=== PATIENT | female | born 1935 | race Caucasian/White ===

== ENCOUNTER 2020-09-11 17:42 | Outpatient (CLI) | payer OTHER, MEDICARE, SELFPAY | END 2020-09-11 17:43 | disposition home or self-care (01) | LOC: ANHCOVIDVC 17:43 | PROVIDERS: PCP Internal Medicine | DX: Z23 Encounter for immunization (principal) | CPT/HCPCS: 0001A; 91300 ==

== ENCOUNTER 2020-10-02 17:38 | Outpatient (CLI) | payer OTHER, MEDICARE, SELFPAY | END 2020-10-02 17:39 | disposition home or self-care (01) | LOC: ANHCOVIDVC 17:38 | PROVIDERS: PCP Internal Medicine | DX: Z23 Encounter for immunization (principal) | CPT/HCPCS: 0002A; 91300 ==

== ENCOUNTER 2021-07-01 09:15 | Inpatient (IN) | payer OTHER, SELFPAY ==
[2021-07-01] VITALS (46 sets, daily range): BP systolic 103–155; BP diastolic 50–112; PULSE 71–100; RESP 12–40; TEMP 36.7–37.1; O2SAT 94–97; BMI 29.7
--- NOTE | 2021-07-01 | ECHO_ITS ---
Patient Info Name: Trupti Rincon Age: 85 years : 1935 Gender: Female Ht: 62 in Wt: 158 lbs BSA: 1.79 m2 HR: 81 bpm BP: 130 / 51 mmHg Technical Quality: Fair Exam Date: 07/01/2021 2:53 PM Exam Location: [facility] Pulmonary Patient Status: Outpatient Admit Date: 07/01/2021 Staff Ordering Physician: Lidia Felder MD Hemodialysis Technician: Azeb Coppola RDCS Attending Provider: Bethany Baez MD Referring Physician: Emerita ISLAS; Exam Type: CA echo doppler color flow Study Info Indications - NEW CHF Complete two-dimensional, color flow and Doppler transthoracic echocardiogram is performed. Summary 1. Complete two-dimensional, color flow and Doppler transthoracic echocardiogram is performed. 2. Left ventricular chamber dimension is normal. 3. Left ventricular systolic function is normal, estimated at 60-65%. 4. There is mildly increased left ventricular wall thickness. 5. The left ventricular diastolic function is grade I diastolic dysfunction. 6. E/e' 15 is elevated. 7. There is mild tricuspid valve regurgitation. 8. No pulmonary hypertension, estimated pulmonary arterial systolic pressure is 34 mmHg. 9. There is trivial pericardial effusion. Left Ventricle E/e' 15 is elevated. Left ventricular chamber dimension is normal. Left ventricular systolic function is normal, estimated at 60-65%. There is mildly increased left ventricular wall thickness. The left ventricular diastolic function is grade I diastolic dysfunction. Right Ventricle Right ventricular systolic function is normal and with normal TAPSE 2.0 cm. Right ventricular chamber dimension is normal. Left Atria Left atrial chamber dimension is normal. Right Atria Right atrial chamber dimension is normal. Aortic Valve The aortic valve is trileaflet. There is no aortic valve stenosis. There is no aortic valve regurgitation. Pulmonic Valve There is no pulmonic regurgitation. Mitral Valve There is no mitral valve stenosis. There is no mitral valve regurgitation. Tricuspid Valve There is mild tricuspid valve regurgitation. No pulmonary hypertension, estimated pulmonary arterial systolic pressure is 34 mmHg. Pericardium/Pleural There is trivial pericardial effusion. Inferior Vena Cava Normal inferior vena cava with >50% collapse upon inspiration consistent with normal right atrial pressure, 5 mmHg. Aorta The aortic root size at the sinus of Valsalva is normal. Left Ventricular Outflow Tract Name Value Normal LVOT 2D LVOT Diameter 2.0 cm LVOT Doppler LVOT Peak Gradient 6 mmHg LVOT Mean Gradient 4 mmHg LVOT VTI 26 cm LVOT VTI/AV VTI Ratio 0.9 LVOT Stroke Volume 81 ml LVOT CO 6.4 l/min LVOT CI 3.6 l/min/m2 Pulmonic Valve Name Value Normal
--- NOTE | ~2021-07-01 | XR_ITS ---
XR chest 1V portable DATE: 07/01/2021 10:06 INDICATION: Shortness of breath. Weakness. TECHNIQUE: Portable upright AP chest on 07/01/2021 at 0959 hours COMPARISON: 08/27/2018 AP and lateral chest FINDINGS: There is cardiomegaly, pulmonary vascular congestion and redistribution, prominence of the minor fissure as well as Td B-lines, consistent with congestive heart failure and mild pulmonary interstitial and subpleural edema. There is minimal if any pleural effusion. The lungs are hyperinflated. No pulmonary consolidation or pneumothorax. Aortic arch calcification. Diffuse osteopenia. IMPRESSION: Congestive heart failure with pulmonary interstitial and subpleural edema Reviewed, dictated and finalized at location B. [facility]AG[facility]
--- NOTE | 2021-07-01 09:47 | ECG_ITS ---
Measurements Intervals [place] Rate: 103 P: 73 NM: 160 QRS: 7 QRSD: 98 T: 44 QT: 316 QTc: 414 Interpretive Statements SINUS TACHYCARDIA VENTRICULAR PREMATURE COMPLEX CANNOT RULE OUT SEPTAL INFARCT, AGE INDETERMINATE BORDERLINE ST ABNORMALITY- ANTEROLATERAL LEADS BASELINE WANDER- I, II, AVR, AVL, AVF ABNORMAL ECG Electronically Signed On 07-01-2021 10:21:29 TOWER TECHNICIAN by Gentry De La Cruz D.O.
--- NOTE | 2021-07-01 09:52 | ED.SOB ---
HPI - SOB/Dyspnea General Chief Complaint: Shortness of Breath/Dyspnea Stated Complaint: SOB FROM [facility] Time Seen by Provider: 07/01/21 09:42 Source: patient and EMS Mode of arrival: EMS History of Present Illness HPI Narrative: This is an 85 year old female who presents for evaluation of shortness of breath. Patient's family reports patient was doing well yesterday. This morning her daughter found patient having difficulty breathing. She reports mild cough and shortness of breath, but she denies chest pain, fever or chills. She denies history of CHF or COPD. She denies any worsening leg swellling. She has received her first 2 covid vaccinations. Related Data Home Medications Medication Instructions Recorded Confirmed aspirin 81 mg tablet,delayed 81 mg PO DAILY 06/29/19 07/01/21 release Allergies Allergy/AdvReac Type Severity Reaction Status Date / Time ioversol Allergy Unknown Unknown Verified 05/09/21 10:36 Sulfa (Sulfonamide Allergy Hives Verified 07/01/21 14:05 Antibiotics) Contrast Media Allergy Intermediate HIVES Uncoded 05/09/21 10:36 Review of Systems Review of Systems: All systems reviewed & are unremarkable except as noted in HPI and below Constitutional: Constitutional: Denies chills and Denies fever(s) ENT: Reports nasal congestion and Denies sore throat Cardiovascular: Cardiovascular: Denies chest pain Respiratory: Respiratory: Reports cough, Reports dyspnea and Denies wheezing Gastrointestinal: Gastrointestinal: Reports abdominal pain, Denies constipation, Denies diarrhea, Reports nausea and Denies vomiting PMFSH Past Medical History Medical History (Updated 07/01/21 @ 17:55 by Lidia Felder MD) Arthritis Degenerative joint disease of right knee Essential (primary) hypertension Hematuria Hypertension Impacted cerumen of both ears Impairment of balance Knee joint effusion Onychomycosis of great toe Pneumonia Postmenopausal Rheumatoid arthritis Right knee DJD Shortness of breath Unsteady gait UTI (urinary tract infection) Vision changes Weight gain Surgical History Surgical History (Updated 07/01/21 @ 15:33 by Jessica Robbins NP) No pertinent past surgical history Family History Family History Father Family history of heart disease in male family member before age 55 Patient's father is Family history of cardiovascular disease Sibling Family history of heart disease in male family member before age 55 Patient's sister is Patient's brother is Family history of cardiovascular disease Mother Patient's mother is Acute myocardial infarction Other Cerebrovascular accident Family history of arthritis Heart disease Hypertension Malignant neoplasm Social History Social History (Updated 07/01/21 @ 15:34 by Jessica Robbins NP) Social History: The patient has 5 children. She is a homemaker. Her daughter is the power attorney general for healthcare. She is and lives home alone. She is a lifelong nonsmoker. She does not use any alcohol marijuana or illicit drugs. Code status full code Smoking status: Never smoker Second hand tobacco smoke exposure: No Alcohol intake: never Substance use: never Substance use type: does not use Spiritual care concerns: No Exam Const: General: alert and ill appearing acutely Orientation/consciousness: patient oriented x3 Other: tachypneic HENMT: Head: normocephalic and atraumatic Mouth: Yes Normal oral and palatal mucosa present, Yes lip normal, Yes oropharynx normal and Yes moist mucous membranes Eyes: EOM: EOMs intact bilaterally Resp: Effort & Inspection: labored and tachypneic Auscultation: no wheezes and diminished lung sounds bilateral Other: airway patent Cardio: Rate: regular rate Rhythm: regular rhythm Heart sounds: no murmurs GI:
[2021-07-01] MEDS: IPRATROPIUM BR 0.02% INH SOLN 0.5 MG/2.5 ML VIAL 1 MG INHALATION (09:58)
[2021-07-01] MEDS: ALBUTEROL SULFATE NEB 2.5 MG/0.5 ML INH 10 MG INHALATION (09:58)
[2021-07-01 10:20] LABS: Alveolar/Arterial O2 Gradient 66.3 mmHg; Base Excess ABG -0.4 mEq/l (+/-2.0); Carboxyhemoglobin 0.9 % THb (0-2.0); Device NASAL CANNULA; Fractional Inspired Oxygen 28 %; HCO3 ABG 24.4 mEq/l (22.0-26.0); Methemoglobin ABG 0.3 %THb (0-1.5); Modified Allen's Test Pass; Oxygen Content ABG 17.8 %vol (16.0-22.0); Oxygen Saturation ABG 96.5 % (95.0-100.0); Oxyhemoglobin 95.1 % THb (90.0-100.0); PCO2 ABG 40.5 mmHg (35.0-45.0); PO2 ABG 85.6 mmHg (80.0-100.0); PO2 FiO2 Ratio Arterial Blood 3.06 %; Reduced Hemoglobin 3.7 %THb (0-5.0); Site Drawn RIGHT RADIAL; Total Hemoglobin 13.3 g/dL (12.0-18.0); pH ABG 7.397 (7.350-7.450)
[2021-07-01 10:24] LABS: Hemoglobin 12.8 g/dL (12.0-15.0); Immature Platelet Fraction Pct 2.7 % (0.9-11.2); Mean Corpuscular HGB Conc 33.7 g/dl (32-36); Mean Corpuscular Hemoglobin 31.5 pg (26-34); Mean Corpuscular Volume 93.6 fl (80-100); Mean Platelet Volume 9.7 fl (7.4-10.4); Red Blood Count 4.06 M/mm3 (4.2-5.4); Red Cell Distribution Width 12.3 % (11.5-14.5); White Blood Count 21.6 K/mm3 (4.5-10.0)
[2021-07-01 10:32] LABS: Alanine Aminotransferase 15 U/L (4-35); Albumin Level 4.2 g/dL (3.5-5.1); Alkaline Phosphatase 68 U/L (38-126); Anion Gap 9 mmol/L (8-16); Aspartate Amino Transferase 27 U/L (14-36); Bilirubin,Total 0.8 mg/dL (0.2-1.3); Blood Urea Nitrogen 16 mg/dL (7-17); Calcium 8.9 mg/dL (8.4-10.2); Carbon Dioxide 24 mmol/L (22-30); Chloride 94 mmol/L (98-107); Estimated CRCL calculation 42 ml/min; Estimated Glomerular Filt Rate > 60; Glucose 171 mg/dL (65-110); Potassium 3.6 mmol/L (3.4-5.0); Sodium 127 mmol/L (137-145)
[2021-07-01 10:46] LABS: INR 1.1; NT Pro B Type Natriuretic Pept 1860 pg/mL (5-100); Prothrombin Time 14.5 Seconds (11.1-14.7); Troponin I 0.043 ng/mL (0.000-0.034)
[2021-07-01 10:47] LABS: Partial Thromboplastin Time 27.2 SECONDS (22.3-36.8)
[2021-07-01] MEDS: IPRATROPIUM BR 0.02% INH SOLN 0.5 MG/2.5 ML VIAL (11:04)
[2021-07-01] MEDS: ALBUTEROL SULFATE NEB 2.5 MG/0.5 ML INH (11:04)
[2021-07-01 11:26] LABS: Band Neutrophils Percent 9 % (0-6); Neutrophils Absolute Manual 20.08 K/mm3 (1.7-7.2); Neutrophils Percent Manual 84 % (46-73)
[2021-07-01 11:27] LABS: Lymphocytes Absolute Manual 0.64 K/mm3 (1.1-4.5); Lymphocytes Percent Manual 3 % (18-44); Monocytes Absolute Manual 0.86 K/mm3 (0.1-0.90); Monocytes Percent Manual 4 % (3-9); Total Cells Counted 100
[2021-07-01 11:28] LABS: Platelet Clumps Present
[2021-07-01] MEDS: methylPREDNISolone SOD SUCC 125 MG VIAL IV PUSH (12:02)
[2021-07-01] MEDS: FUROSEMIDE INJ 40 MG/4 ML VIAL IV PUSH (12:02)
[2021-07-01 12:53] LABS: EDCOVIDSCREEN Negative (Negative)
--- NOTE | 2021-07-01 13:49 | PM.IMHP ---
H&P: HPI History of Present Illness Date/Time: 07/01/21 13:49 this is a 85-year-old female patient who came to the emergency room due to shortness of breath. The patient has had no prior diagnosis of congestive heart failure. The patient was gasping for air according to her daughter. The patient was recently treated for urinary tract infection and had been on 2 different antibiotics. Initially she had been on Levaquin and she recently completed Macrobid. The patient also has been having dry heaves today. The daughter feels that maybe the antibiotics had been making the patient sick to her stomach. The patient is not typically on any oxygen at home and she is on 2.5 L here. Her respiratory rate has been in the 30s. Blood pressure is 124/56. Pulse rate is in the 80s. O2 saturation is in the 90s with the 2.5 L. patient does not appear to be in any distress. Her sodium level was 127. Glucose is 171. Her troponin is 0.043. BNP is 1860. Her COVID rapid was negative. Chest x-ray was read as congestive heart failure and pulmonary interstitial and some pleural edema. The patient has a white count of 21.6. The patient was given nebulizer treatments, Lasix, Solu-Medrol, and she was treated for community-acquired pneumonia. She was given a azithromycin Rocephin. The patient is being admitted for observation status on 07/01/21. Chief Complaint: Shortness of breath Review of Systems Review of Systems: All systems reviewed & are unremarkable except as noted in HPI and below Constitutional: Constitutional: Reports as per HPI and Reports no additional constitutional complaints Eyes: Eyes: Reports as per HPI and Reports no additional eye complaints ENT: Reports system reviewed and no additional complaints, except as documented and Reports Normal hearing present Cardiovascular: Cardiovascular: Reports no additional cardiovascular complaints Respiratory: Respiratory: Reports no additional respiratory complaints and Reports no additional respiratory complaints Gastrointestinal: Gastrointestinal: Reports as per HPI and Reports no additional gastrointestinal complaints Musculoskeletal: Musculoskeletal: Reports no additional musculoskeletal complaints Integumentary/Breasts: Skin/Breast: Reports system reviewed and no additional complaints, except as docu and Reports as per HPI Neurologic: Reports system reviewed and no additional complaints, except as documented, Reports as per HPI and Reports Normal hearing present Psychiatric: Psychiatric: Reports no additional psychiatric complaints and Reports as per HPI Endocrine: Endocrine: Reports no additional endocrine complaints Hematologic/Lymphatic: Hematologic/Lymphatic: Reports no additional hematologic/lymphatic complaints Allergic/Immunologic: Allergic/Immunologic: Reports no additional allergic/immunologic complaints [facility] [place] Past Medical History Medical History (Updated 07/01/21 @ 15:52 by Jessica Robbins NP) Arthritis Degenerative joint disease of right knee Essential (primary) hypertension Hematuria Hypertension Impacted cerumen of both ears Impairment of balance Knee joint effusion Onychomycosis of great toe Pneumonia Postmenopausal Rheumatoid arthritis Right knee DJD Shortness of breath Unsteady gait UTI (urinary tract infection) Vision changes Weight gain Surgical History Surgical History (Updated 07/01/21 @ 15:33 by Jessica Robbins NP) No pertinent past surgical history Family History Family History Father Family history of heart disease in male family member before age 55 Patient's father is Family history of cardiovascular disease Sibling Family history of heart disease in male family member before age 55 Patient's sister is Patient's brother is Family history of cardiovascular disease Mother Patient's mother is Acute myocardial i
[2021-07-01 14:07] LABS: Troponin I 0.043 ng/mL (0.000-0.034)
--- NOTE | 2021-07-01 17:08 | PC.NURSE ---
Pt finished dinner, ate approx 75%. Pt denies any complaints right now, resting in NAD. Pt assisted onto bedpan and given call light, she states she will need a few minutes. Continuing to await admission bed assignment.
[2021-07-01 18:06] LABS: Add Urine Microscopic? YES; Appearance Urine Clear (Clear); Bacteria Urine Trace /hpf; Bilirubin Urine Negative (Negative); Blood Urine 2+ (Negative); Color Urine Yellow (Yellow); Glucose Urine UA Negative (Negative); Ketones Urine Negative (Negative); Leukocyte Esterase Ur Trace LEU/UL (Negative); Nitrate Urine Negative (Negative); Protein Urine Negative (Negative); Specific Grav Ur 1.006 (1.001-1.035); Squamous Epithelial Cell Urine Few /hpf (Few); Urobilinogen Urine Negative mg/dL (<2.0)
--- NOTE | 2021-07-01 18:17 | PC.NURSE ---
Report received from Jessica RAZA in the ED.
--- NOTE | 2021-07-01 18:36 | PC.NURSE ---
This patient, Trupti Rincon, was admitted to [address] [place] [address] Room 241-01. Patient/family oriented to hospital policies and general routines including ID bracelet, bed and alarms, visiting hours, pain management, procedures, bathroom and other care routines, personal items, smoking policy, room service/diet, and visiting hours. Information on how to activate the Rapid Response Team has been discussed. Patient/Family are encouraged to report perceived risks to care and to ask questions if they do not understand what they are told or what they should do. This patient, Trupti Rincon, was admitted to [facility] Room [facility]-01. Patient/family oriented to hospital policies and general routines including ID bracelet, bed and alarms, visiting hours, pain management, procedures, bathroom and other care routines, personal items, smoking policy, room service/diet, and visiting hours. Information on how to activate the Rapid Response Team has been discussed. Patient/Family are encouraged to report perceived risks to care and to ask questions if they do not understand what they are told or what they should do.
[2021-07-01] MEDS: carvediloL 6.25 MG TABLET BY MOUTH (21:36)
[2021-07-01] MEDS: methylPREDNISolone SOD SUCC 125 MG VIAL 60 MG IV PUSH (21:36)
[2021-07-01] MEDS: LOSARTAN POTASSIUM 50 MG TABLET BY MOUTH (21:36)
[2021-07-02] VITALS (19 sets, daily range): BP systolic 128–150; BP diastolic 41–87; PULSE 60–90; RESP 12–20; TEMP 36.2–36.8; O2SAT 93–98
[2021-07-02] MEDS: IPRATROPIUM BR 0.02% INH SOLN 0.5 MG/2.5 ML VIAL INHALATION ×5 (01:34→22:06)
[2021-07-02] MEDS: ALBUTEROL SULFATE NEB 2.5 MG/0.5 ML INH 5 MG INHALATION ×5 (01:35→22:06)
--- NOTE | 2021-07-02 01:39 | PCRCNOTE ---
Pt did not receive 07/01 20:00 nebulizer tx. RT unavailable during administration window.
[2021-07-02 05:46] LABS: Hematocrit 34.9 % (37.0-47.0); Hemoglobin 12.1 g/dL (12.0-15.0); Mean Corpuscular HGB Conc 34.7 g/dl (32-36); Mean Corpuscular Hemoglobin 31.7 pg (26-34); Mean Corpuscular Volume 91.4 fl (80-100); Mean Platelet Volume 9.6 fl (7.4-10.4); Platelet Count Result 247 k/mm3 (150-375); Red Blood Count 3.82 M/mm3 (4.2-5.4); Red Cell Distribution Width 12.3 % (11.5-14.5); White Blood Count 20.2 K/mm3 (4.5-10.0)
[2021-07-02 05:49] LABS: Alanine Aminotransferase 16 U/L (4-35); Albumin Level 3.8 g/dL (3.5-5.1); Alkaline Phosphatase 62 U/L (38-126); Anion Gap 7 mmol/L (8-16); Aspartate Amino Transferase 31 U/L (14-36); Bilirubin,Total 0.4 mg/dL (0.2-1.3); Blood Urea Nitrogen 26 mg/dL (7-17); Calcium 8.8 mg/dL (8.4-10.2); Carbon Dioxide 28 mmol/L (22-30); Chloride 91 mmol/L (98-107); Cholesterol 174 mg/dL (0-200); Estimated CRCL calculation 38 ml/min; Estimated Glomerular Filt Rate 60; Glucose 151 mg/dL (65-110); HDL Direct 55 mg/dL; Lactate Dehydrogenase 462 U/L (313-618); Lactic Acid Reflex 1.2 mmol/L (0.7-2.1); Magnesium 1.9 mg/dL (1.6-2.3); Potassium 3.3 mmol/L (3.4-5.0); Sodium 126 mmol/L (137-145); Triglycerides 54 mg/dL (<150)
[2021-07-02 06:00] LABS: LDL Cholesterol Direct 79 mg/dL
[2021-07-02] MEDS: methylPREDNISolone SOD SUCC 125 MG VIAL 60 MG IV PUSH (06:33)
[2021-07-02 06:53] LABS: Thyroid Stimulating Hormone Reflex 0.891 uIU/mL (0.465-4.68)
[2021-07-02 08:02] LABS: Band Neutrophils Percent 6 % (0-6); Lymphocytes Percent Manual 1 % (18-44); Monocytes Percent Manual 2 % (3-9); Neutrophils Absolute Manual 19.59 K/mm3 (1.7-7.2); Neutrophils Percent Manual 91 % (46-73); Platelet Estimate Adequate (Adequate); Total Cells Counted 100
[2021-07-02] MEDS: CHOLECALCIFEROL 1,000 UNITS TABLET 2000 UNITS PO (09:02)
[2021-07-02] MEDS: ASPIRIN 81 MG ENTERIC TABLET PO (09:02)
[2021-07-02] MEDS: carvediloL 6.25 MG TABLET BY MOUTH (09:02)
[2021-07-02] MEDS: ENOXAPARIN 40 MG/0.4 ML SYRINGE SUB-Q (09:03)
[2021-07-02] MEDS: LOSARTAN POTASSIUM 50 MG TABLET BY MOUTH ×2 (09:03→21:58)
--- NOTE | 2021-07-02 10:04 | PM.CNCAR ---
Assessment and Plan Additional Plan this is an 85-year-old woman with a history of longstanding essential hypertension presenting to the hospital with chief complaint of episode of chills yesterday morning and then some shortness of breath after that. She does not read the report a productive cough or a fever. Chest x-ray is interpreted as showing some basilar pulmonary congestion which is also audible on physical exam. She has no history of overt congestive heart failure in the past. Her echocardiogram shows normal left ventricular size and systolic contractility. There is no significant valvular pathology. She does have diastolic noncompliance. At this point I would recommend continuing her home dose of losartan. I am going to advance her carvedilol dosage to 12.5 mg q.12 hours since she is somewhat hypertensive. I will start her on some oral furosemide in place of the hydrochlorothiazide that she had been taking as an outpatient. Will follow her with you during this hospitalization and thank you for asking us to see her in consultation Freddie Zarate MD [facility] History of Present Illness History of Present Illness Consult date/time: 07/02/21 10:04 Consult reason: congestive heart failure Reason For Visit: Chf w pulmonary edema/acute respiratory distress Narrative: This is an 85-year-old woman who I am seeing at the request of the hospitalist because of suspected congestive heart failure and elevated troponin levels. This is a lady who says she is not known to have any cardiac problems in the past although she does have longstanding hypertension. She states that she came to the hospital yesterday because of feeling unwell at home. Her symptoms began with the sense of feeling chilled and very shaky earlier in the day it despite the fact that she had turned up the furnace and covered up with a blanket. Later in the day she started to feel more short of breath and so her family brought her into the emergency department for evaluation. In the emergency department she was seen and her chest x-ray was interpreted as showing evidence of pulmonary congestion raising the concern regarding CHF. She had troponin levels done which were slightly out of normal range. Her ECG does not show any evidence of acute coronary syndrome. She was put in the hospital given some intravenous furosemide last evening. She was also placed on antibiotics and steroids. She appears to be fairly comfortable when I came in the room to see her this morning seated in her bedside chair having her breakfast and watching television. She does not report any symptoms of chest pain orthopnea or PND she has had no accumulating lower extremity edema. An echocardiogram was done yesterday which was interpreted as showing mild LVH with normal systolic function, grade 1 diastolic noncompliance and no significant valvular pathology. Her chest x-ray demonstrates congestion in right lower lobe as well as significant tortuosity of her aorta. Review of Systems Constitutional: Constitutional: Reports no additional constitutional complaints Eyes: Eyes: Reports no additional eye complaints ENT: Reports system reviewed and no additional complaints, except as documented Cardiovascular: Cardiovascular: Reports no additional cardiovascular complaints Respiratory: Respiratory: Reports dyspnea Gastrointestinal: Gastrointestinal: Reports no additional gastrointestinal complaints Musculoskeletal: Musculoskeletal: Reports arthralgias Integumentary/Breasts: Skin/Breast: Reports system reviewed and no additional complaints, except as docu Endocrine: Endocrine: Reports no additional endocrine complaints Hematologic/Lymphatic: Hematologic/Lymphatic: Reports no additional hematologic/lymphatic complaints Allergic/Immunologic: Allergic/Immunologic: Reports no additional allergic/immunologic complaints [facility] Past Medical History Medical History (Updated 07/01/21 @ 17:55 by Lidia Felder,
--- NOTE | 2021-07-02 10:24 | PM.IMPN ---
Progress Note: A&P Assessment and Plan (1) Acute respiratory failure with hypoxia: Code(s): J96.01 - Acute respiratory failure with hypoxia Status: Acute Assessment and Plan: Patient is an 85-year-old woman with a history of hypertension, who presented to emergency room with increased shortness of breath over the last few days and went to an urgent care yesterday where they found her to be hypoxic and she was sent to our emergency room for further evaluation. initial vitals showed elevated blood pressure 135/89, heart rate 100 beats per minute, afebrile, normal oxygenation at 96% on room air. Initial labs showed leukocytosis at 21,600, normal H&H, elevated neutrophil count at 84% and neutrophils elevated at 9%, normal coag panel, normal ABG on 2 L via nasal cannula. Hyponatremia at 127, normal renal function, normal LFTs, troponin elevated 0.043 x2. BNP elevated at 1860. Urinalysis showed 2+ blood, trace leukocyte esterase, WBCs 7-9, not appear to be a UTI. Rapid COVID test was negative in the emergency room. Chest x-ray showed congestive heart failure with pulmonary interstitial and subpleural edema. Patient was admitted to the hospital with suspected pneumonia and congestive heart failure with further workup and evaluation. Blood cultures are negative to date. Leukocytosis slight improvement to 20,000, still elevated neutrophils but could be secondary to Solu-Medrol. Solu-Medrol at this time patient was started on IV Lasix 40 mg and her creatinine and BUN elevated slightly today, cardiology was consulted and switched her to oral Lasix 20 mg daily I will discontinue her IV Solu-Medrol because her lungs are clear without any wheezing, patient did not have any history COPD or asthma and she is not on any inhalers for this will continue on IV antibiotics with IV Rocephin and azithromycin for community-acquired pneumonia patient is currently 93% on 2 L via nasal cannula. Will wean oxygen as tolerated. continue monitoring. (2) Leukocytosis: Code(s): D72.829 - Elevated white blood cell count, unspecified Status: Acute Assessment and Plan: Most likely from underlying pneumonia trending down slowly will recheck in the morning (3) Pulmonary edema: Code(s): J81.1 - Chronic pulmonary edema Status: Acute Assessment and Plan: patient has no history of congestive heart failure. Echocardiogram has been ordered cardiology has been consulted given elevated troponins and pulmonary edema patient was started on IV Lasix 40 mg but her creatinine and BUN elevated, Cardiology start her on Lasix 20 mg daily continue monitoring respiratory status and slowly diurese (4) Elevated troponin: Code(s): R77.8 - Other specified abnormalities of plasma proteins Status: Acute Assessment and Plan: May be related to the congestive heart failure. Continue to trend. Patient has no complaints of chest pain this time. Continue with aspirin. cardiology has been consulted for elevated troponins and their input is greatly appreciated (5) Essential (primary) hypertension: Code(s): I10 - Essential (primary) hypertension Status: Chronic Assessment and Plan: blood pressure this morning was 150/54. Will continue patient's Coreg and losartan. Will hold her hydrochlorothiazide and instead use Lasix. Continue monitoring Will pressure make adjustments if needed. (6) Hyperlipidemia LDL goal <130: Code(s): E78.5 - Hyperlipidemia, unspecified Status: Acute Assessment and Plan: Total cholesterol normal, LDL 79. Well controlled at this time. she is not on any cholesterol medications currently. ____
[2021-07-02 20:46] LABS: Creatinine Urine 36.4 mg/dL
[2021-07-02 21:21] LABS: Sodium Urine Random < 5 meq/L
[2021-07-02] MEDS: carvediloL 12.5 MG TABLET BY MOUTH (21:57)
[2021-07-03] VITALS (17 sets, daily range): BP systolic 121–161; BP diastolic 60–73; PULSE 59–98; RESP 16–20; TEMP 36–36.6; O2SAT 93–95
[2021-07-03] MEDS: IPRATROPIUM BR 0.02% INH SOLN 0.5 MG/2.5 ML VIAL INHALATION ×3 (03:25→20:34)
[2021-07-03] MEDS: ALBUTEROL SULFATE NEB 2.5 MG/0.5 ML INH 5 MG INHALATION ×3 (03:25→20:34)
[2021-07-03 05:11] LABS: Basophils Absolute Auto 0.1 K/mm3 (0.0-0.1); Basophils Percent Auto 0.2 % (0.2-1.2); Hematocrit 36.4 % (37.0-47.0); Hemoglobin 12.6 g/dL (12.0-15.0); Immature Granulocyte Absolute 0.23 K/mm3 (0.00-0.031); Lymphocytes Absolute Auto 0.85 K/mm3 (0.9-3.2); Lymphocytes Percent Auto 3.8 % (18.3-44.2); Mean Corpuscular HGB Conc 34.6 g/dl (32-36); Mean Corpuscular Hemoglobin 31.7 pg (26-34); Mean Corpuscular Volume 91.5 fl (80-100); Mean Platelet Volume 9.6 fl (7.4-10.4); Monocytes Absolute Auto 1.2 K/mm3 (0.1-0.6); Monocytes Percent Auto 5.1 % (2.6-8.5); Neutrophils Absolute Auto 20.3 K/mm3 (1.3-6.7); Neutrophils Percent Auto 89.9 % (45.5-73.1); Platelet Count Result 270 k/mm3 (150-375); Red Blood Count 3.98 M/mm3 (4.2-5.4); Red Cell Distribution Width 12.2 % (11.5-14.5); White Blood Count 22.6 K/mm3 (4.5-10.0)
[2021-07-03 05:26] LABS: Anion Gap 7 mmol/L (8-16); Blood Urea Nitrogen 32 mg/dL (7-17); Calcium 8.7 mg/dL (8.4-10.2); Carbon Dioxide 28 mmol/L (22-30); Chloride 93 mmol/L (98-107); Estimated CRCL calculation 43 ml/min; Estimated Glomerular Filt Rate > 60; Glucose 145 mg/dL (65-110); Magnesium 2.2 mg/dL (1.6-2.3); Potassium 3.5 mmol/L (3.4-5.0); Sodium 128 mmol/L (137-145)
[2021-07-03] MEDS: CHOLECALCIFEROL 1,000 UNITS TABLET 2000 UNITS PO (08:02)
[2021-07-03] MEDS: FUROSEMIDE 20 MG TABLET PO (08:02)
[2021-07-03] MEDS: carvediloL 12.5 MG TABLET BY MOUTH ×2 (08:02→20:57)
[2021-07-03] MEDS: LOSARTAN POTASSIUM 50 MG TABLET BY MOUTH ×2 (08:02→20:57)
[2021-07-03] MEDS: ASPIRIN 81 MG ENTERIC TABLET PO (08:02)
[2021-07-03] MEDS: ENOXAPARIN 40 MG/0.4 ML SYRINGE SUB-Q (08:03)
--- NOTE | 2021-07-03 09:04 | PCOTNOTE ---
On 07/03/21, the student, Ami Haji, provided care and [facility]. I have reviewed the student's documentation and agree with the findings.
--- NOTE | 2021-07-03 09:26 | PM.IMPN ---
Progress Note: A&P Assessment and Plan (1) Acute respiratory failure with hypoxia: Code(s): J96.01 - Acute respiratory failure with hypoxia Status: Acute Assessment and Plan: Patient is an 85-year-old woman with a history of hypertension, who presented to emergency room with increased shortness of breath over the last few days and went to an urgent care yesterday where they found her to be hypoxic and she was sent to our emergency room for further evaluation. initial vitals showed elevated blood pressure 135/89, heart rate 100 beats per minute, afebrile, normal oxygenation at 96% on room air. Initial labs showed leukocytosis at 21,600, normal H&H, elevated neutrophil count at 84% and neutrophils elevated at 9%, normal coag panel, normal ABG on 2 L via nasal cannula. Hyponatremia at 127, normal renal function, normal LFTs, troponin elevated 0.043 x2. BNP elevated at 1860. Urinalysis showed 2+ blood, trace leukocyte esterase, WBCs 7-9, not appear to be a UTI. Rapid COVID test was negative in the emergency room. Chest x-ray showed congestive heart failure with pulmonary interstitial and subpleural edema. Patient was admitted to the hospital with suspected pneumonia and congestive heart failure with further workup and evaluation. Blood cultures are negative to date. Leukocytosis still elevated and neutrophils but could be secondary to Solu-Medrol. Solu-Medrol was discontinued already. patient was started on IV Lasix 40 mg and her creatinine and BUN elevated slightly today, cardiology was consulted and switched her to oral Lasix 20 mg daily I will discontinue her IV Solu-Medrol because her lungs are clear without any wheezing, patient did not have any history COPD or asthma and she is not on any inhalers for this will continue on IV antibiotics with IV Rocephin and azithromycin for community-acquired pneumonia patient is currently 93% on room air. Will recheck labs in the morning and if improving leukocytosis and patient feeling well will be discharged tomorrow continue monitoring. (2) Leukocytosis: Code(s): D72.829 - Elevated white blood cell count, unspecified Status: Acute Assessment and Plan: Most likely from underlying pneumonia Still elevated, will recheck in the morning (3) Pulmonary edema: Code(s): J81.1 - Chronic pulmonary edema Status: Acute Assessment and Plan: Acute diastolic dysfunction. Echocardiogram showed normal EF 60-65%, mild LVH, diastolic dysfunction grade 1, no pulmonary hypertension. cardiology was consulted and switched Lasix to p.o. 20 mg which she would like her discharged on. continue monitoring respiratory status and slowly diurese (4) Elevated troponin: Code(s): R77.8 - Other specified abnormalities of plasma proteins Status: Acute Assessment and Plan: May be related to the congestive heart failure. Patient has no complaints of chest pain this time. Continue with aspirin. (5) Essential (primary) hypertension: Code(s): I10 - Essential (primary) hypertension Status: Chronic Assessment and Plan: blood pressure this morning was 161/62. Will continue patient's Coreg and losartan. Will hold her hydrochlorothiazide and instead use Lasix. Patient states she is all worked up since her son is leaving town today. She states this is why her blood pressure is high. Continue monitoring Will pressure make adjustments if needed. (6) Hyperlipidemia LDL goal <130: Code(s): E78.5 - Hyperlipidemia, unspecified Status: Acute Assessment and Plan: Total cholesterol normal, LDL 79. Well controlled at this time. she is not on any cholesterol medicatio
--- NOTE | 2021-07-03 13:41 | PM.PNCARD ---
Progress Note: A&P Assessment and Plan (1) CHF (congestive heart failure): Code(s): I50.9 - Heart failure, unspecified Status: Acute Assessment and Plan: diastolic in etiology. Continue low-dose furosemide, carvedilol, losartan. (2) Elevated troponin: Code(s): R77.8 - Other specified abnormalities of plasma proteins Status: Acute Assessment and Plan: Not related to ACS. (3) Essential (primary) hypertension: Code(s): I10 - Essential (primary) hypertension Status: Chronic Assessment and Plan: At reasonable (4) Hypokalemia: Code(s): E87.6 - Hypokalemia Status: Acute Assessment and Plan: KCL 40 mEq p.o. x1 now Subjective Date/time seen: 07/03/21 13:41 Interval history: 85-year-old admitted with shortness of breath Date of service 07/03/2021: She feels better. She is less short of breath. No chest pain. Review of Systems Constitutional: Constitutional: Reports no additional constitutional complaints Eyes: Eyes: Reports no additional eye complaints ENT: Reports system reviewed and no additional complaints, except as documented Cardiovascular: Cardiovascular: Reports no additional cardiovascular complaints and Reports dyspnea Respiratory: Respiratory: Reports dyspnea Gastrointestinal: Gastrointestinal: Reports no additional gastrointestinal complaints Musculoskeletal: Musculoskeletal: Reports arthralgias Integumentary/Breasts: Skin/Breast: Reports system reviewed and no additional complaints, except as docu Endocrine: Endocrine: Reports no additional endocrine complaints Hematologic/Lymphatic: Hematologic/Lymphatic: Reports no additional hematologic/lymphatic complaints Allergic/Immunologic: Allergic/Immunologic: Reports no additional allergic/immunologic complaints Exam Const: General: comfortable and no acute distress Other: Pleasant elderly lady eating her breakfast watching television HENMT: Mouth: Yes moist mucous membranes Eyes: Sclera: sclerae normal Neck: Neck: supple and no JVD Other: carotid pulses are intact bilaterally no significant bruits are audible Resp: Effort & Inspection: normal respiratory effort Other: basilar crackles are noted Cardio: Rate: regular rate Rhythm: regular rhythm Other: very soft systolic murmur at the left sternal border without radiation S4 is audible no S3 or rub GI: Auscultation: normal bowel sounds Skin: General skin exam: normal color Neuro: Cognition (Neuro): normal cognition Extrem: Other: adequate distal perfusion no significant peripheral edema Objective Data Vital Signs Vital Signs: Vital Signs - 24 hr 07/02/21 15:10 07/02/21 15:23 07/02/21 16:00 Temperature 36.7 C Pulse Rate 60 63 76 Respiratory Rate 16 20 16 Blood Pressure 128/72 Pulse Oximetry 93 07/02/21 19:08 07/02/21 20:00 07/02/21 21:57 Temperature 36.3 C L Pulse Rate 81 83 81 Respiratory Rate 17 Blood Pressure 142/73 H Pulse Oximetry 95 07/02/21 22:00 07/02/21 22:10 07/02/21 23:25 Temperature 36.3 C L Pulse Rate 80 80 77 Respiratory Rate 20 20 18 Blood Pressure 139/87 Pulse Oximetry 93 07/03/21 00:00 07/03/21 03:00 07/03/21 03:21 Temperature 36.0 C L Pulse Rate 64 74 80 Respiratory Rate 18 20 Blood Pressure 161/62 H Pulse Oximetry 93 07/03/21 03:32 07/03/21 04:00 07/03/21 08:00 Temperature Pulse Rate 80 60 89 Respiratory Rate 20 Blood Pressure Pulse Oximetry 93 07/03/21 08:02 07/03/21 09:30 07/03/21 09:40 Temperature 36.4 C L Pulse Rate 98 67 66 Respiratory Rate 18 20 Blood Pressure 121/63 Pulse Oximetry 95 94 Intake/Output Intake/Output: Intake & Output 06/30/21 07/01/21 07/02/21 07/03/21 23:59 23:59 23:59 23:59 Intake Total 300 1100 1150 Output Total 800 2150 Balance 300 300 -1000 Meds/Results Medications: Active Medications Generic Name Dose Route Start Last Admin Trade Name Fr
[2021-07-03] MEDS: POTASSIUM CHLORIDE 20 MEQ TABLET 40 MEQ PO (15:11)
[2021-07-04] VITALS (14 sets, daily range): BP systolic 123–153; BP diastolic 49–59; PULSE 61–112; RESP 16–20; TEMP 36.3–36.7; O2SAT 92–94
[2021-07-04] MEDS: ALBUTEROL SULFATE NEB 2.5 MG/0.5 ML INH 5 MG INHALATION ×3 (02:10→20:22)
[2021-07-04] MEDS: IPRATROPIUM BR 0.02% INH SOLN 0.5 MG/2.5 ML VIAL INHALATION ×3 (02:10→20:22)
[2021-07-04 05:45] LABS: Basophils Percent Auto 0.2 % (0.2-1.2); Eosinophils Absolute Auto 0.3 K/mm3 (0-0.3); Eosinophils Percent Auto 2.9 % (0-4.4); Hematocrit 36.3 % (37.0-47.0); Hemoglobin 12.3 g/dL (12.0-15.0); Immature Granulocyte Absolute 0.09 K/mm3 (0.00-0.031); Immature Granulocyte Percent A 0.8 % (0-0.5); Lymphocytes Absolute Auto 1.99 K/mm3 (0.9-3.2); Lymphocytes Percent Auto 17.4 % (18.3-44.2); Mean Corpuscular HGB Conc 33.9 g/dl (32-36); Mean Corpuscular Hemoglobin 31.5 pg (26-34); Mean Corpuscular Volume 93.1 fl (80-100); Mean Platelet Volume 9.7 fl (7.4-10.4); Monocytes Absolute Auto 1.3 K/mm3 (0.1-0.6); Monocytes Percent Auto 10.9 % (2.6-8.5); Neutrophils Absolute Auto 7.8 K/mm3 (1.3-6.7); Neutrophils Percent Auto 67.8 % (45.5-73.1); Platelet Count Result 256 k/mm3 (150-375); Red Cell Distribution Width 12.3 % (11.5-14.5); White Blood Count 11.5 K/mm3 (4.5-10.0)
[2021-07-04 05:51] LABS: Anion Gap 8 mmol/L (8-16); Blood Urea Nitrogen 26 mg/dL (7-17); Calcium 8.8 mg/dL (8.4-10.2); Carbon Dioxide 29 mmol/L (22-30); Chloride 98 mmol/L (98-107); Estimated CRCL calculation 43 ml/min; Estimated Glomerular Filt Rate > 60; Glucose 85 mg/dL (65-110); Potassium 3.5 mmol/L (3.4-5.0); Sodium 135 mmol/L (137-145)
[2021-07-04] MEDS: LOSARTAN POTASSIUM 50 MG TABLET BY MOUTH ×2 (09:08→20:09)
[2021-07-04] MEDS: ASPIRIN 81 MG ENTERIC TABLET PO (09:08)
[2021-07-04] MEDS: CHOLECALCIFEROL 1,000 UNITS TABLET 2000 UNITS PO (09:09)
[2021-07-04] MEDS: FUROSEMIDE 20 MG TABLET PO (09:09)
[2021-07-04] MEDS: carvediloL 12.5 MG TABLET BY MOUTH ×2 (09:09→20:09)
[2021-07-04] MEDS: ENOXAPARIN 40 MG/0.4 ML SYRINGE SUB-Q (09:09)
--- NOTE | 2021-07-04 09:11 | PM.PNCARD ---
Progress Note: A&P Assessment and Plan (1) CHF (congestive heart failure): Code(s): I50.9 - Heart failure, unspecified Status: Acute Assessment and Plan: diastolic in etiology. Continue low-dose furosemide, carvedilol, losartan. (2) Elevated troponin: Code(s): R77.8 - Other specified abnormalities of plasma proteins Status: Acute Assessment and Plan: Not related to ACS. (3) Essential (primary) hypertension: Code(s): I10 - Essential (primary) hypertension Status: Chronic Assessment and Plan: At reasonable goal (4) Hypokalemia: Code(s): E87.6 - Hypokalemia Status: Acute Assessment and Plan: Additional 40 mEq of p.o. potassium x1 No further cardiac recommendations Subjective Date/time seen: 07/04/21 09:11 Interval history: 85-year-old admitted with shortness of breath Date of service 07/04/2021: She feels better. Shortness breath is better. No chest pain. No swelling. Review of Systems Constitutional: Constitutional: Reports no additional constitutional complaints Eyes: Eyes: Reports no additional eye complaints ENT: Reports system reviewed and no additional complaints, except as documented Cardiovascular: Cardiovascular: Reports no additional cardiovascular complaints and Reports dyspnea Respiratory: Respiratory: Reports dyspnea Gastrointestinal: Gastrointestinal: Reports no additional gastrointestinal complaints Musculoskeletal: Musculoskeletal: Reports arthralgias Integumentary/Breasts: Skin/Breast: Reports system reviewed and no additional complaints, except as docu Endocrine: Endocrine: Reports no additional endocrine complaints Hematologic/Lymphatic: Hematologic/Lymphatic: Reports no additional hematologic/lymphatic complaints Allergic/Immunologic: Allergic/Immunologic: Reports no additional allergic/immunologic complaints Exam Const: General: comfortable and no acute distress Other: Pleasant elderly lady eating her breakfast watching television HENMT: Mouth: Yes moist mucous membranes Eyes: Sclera: sclerae normal Neck: Neck: supple and no JVD Other: carotid pulses are intact bilaterally no significant bruits are audible Resp: Effort & Inspection: normal respiratory effort Other: basilar crackles are noted Cardio: Rate: regular rate Rhythm: regular rhythm Other: very soft systolic murmur at the left sternal border without radiation S4 is audible no S3 or rub GI: Auscultation: normal bowel sounds Skin: General skin exam: normal color Neuro: Cognition (Neuro): normal cognition Extrem: Other: adequate distal perfusion no significant peripheral edema Objective Data Vital Signs Vital Signs: Vital Signs - 24 hr 07/03/21 09:30 07/03/21 09:40 07/03/21 12:00 Temperature 36.4 C L Pulse Rate 67 66 66 Respiratory Rate 18 20 Blood Pressure 121/63 Pulse Oximetry 95 94 07/03/21 13:55 07/03/21 16:00 07/03/21 20:00 Temperature 36.1 C L 36.6 C Pulse Rate 59 L 62 69 Respiratory Rate 20 16 Blood Pressure 148/60 H 138/73 Pulse Oximetry 93 93 07/03/21 20:34 07/03/21 20:39 07/03/21 20:42 Temperature Pulse Rate 60 60 59 L Respiratory Rate 20 20 Blood Pressure Pulse Oximetry 93 07/03/21 20:57 07/04/21 00:00 07/04/21 02:10 Temperature 36.7 C Pulse Rate 68 63 63 Respiratory Rate 16 20 Blood Pressure 123/49 L Pulse Oximetry 94 07/04/21 02:18 07/04/21 04:00 Temperature 36.7 C Pulse Rate 62 68 Respiratory Rate 20 16 Blood Pressure 153/59 H Pulse Oximetry 93 Intake/Output Intake/Output: Intake & Output 07/01/21 07/02/21 07/03/21 07/04/21 23:59 23:59 23:59 23:59 Intake Total 300 1100 2260 640 Output Total 800 2150 700 Balance 300 300 110 -60 Meds/Results Medications: Active Medications Generic Name Dose Route Start Last Admin Trade Name Freq PRN Reason Stop Dose Admin Albuterol 5 mg 07/01/21 14:00 07/04/21 02:10 Albuterol
[2021-07-04] MEDS: POTASSIUM CHLORIDE 20 MEQ TABLET 40 MEQ PO (10:30)
--- NOTE | 2021-07-04 11:22 | PM.IMPN ---
Progress Note: A&P Assessment and Plan (1) Acute respiratory failure with hypoxia: Code(s): J96.01 - Acute respiratory failure with hypoxia Status: Acute Assessment and Plan: Patient is an 85-year-old woman with a history of hypertension, who presented to emergency room with increased shortness of breath over the last few days and went to an urgent care yesterday where they found her to be hypoxic and she was sent to our emergency room for further evaluation. initial vitals showed elevated blood pressure 135/89, heart rate 100 beats per minute, afebrile, normal oxygenation at 96% on room air. Initial labs showed leukocytosis at 21,600, normal H&H, elevated neutrophil count at 84% and neutrophils elevated at 9%, normal coag panel, normal ABG on 2 L via nasal cannula. Hyponatremia at 127, normal renal function, normal LFTs, troponin elevated 0.043 x2. BNP elevated at 1860. Urinalysis showed 2+ blood, trace leukocyte esterase, WBCs 7-9, not appear to be a UTI. Rapid COVID test was negative in the emergency room. Chest x-ray showed congestive heart failure with pulmonary interstitial and subpleural edema. Patient was admitted to the hospital with suspected pneumonia and congestive heart failure with further workup and evaluation. Blood cultures are negative to date. Leukocytosis is improved to 11,000 thousand today which I believe is delayed because of the IV Solu-Medrol she had been receiving initially. patient was started on IV Lasix 40 mg and her creatinine and BUN elevated slightly, cardiology was consulted and switched her to oral Lasix 20 mg daily and she has been tolerating this well with a normal renal function and clear lung sounds on exam IV Solu-Medrol was discontinued because her lungs are clear without any wheezing, patient did not have any history COPD or asthma and she is not on any inhalers. She has not had any wheezing or abnormality with discontinuation. will continue on IV antibiotics with IV Rocephin and azithromycin for community-acquired pneumonia patient is currently 93% on room air. Stable for discharge at this time. We are working on SNF authorization and insurance at this time. The patient is otherwise walking fairly well and we are trying to reach out to the family to see if they would like to discharge with home health instead as long as the family can provide 24/7 care at least initially when she returns home to make sure she does not have a fall or any issues. Working with Care coordination in this aspect. continue monitoring. (2) Leukocytosis: Code(s): D72.829 - Elevated white blood cell count, unspecified Status: Acute Assessment and Plan: Most likely from underlying pneumonia Much improved today I believe the steroids are now out of her system. (3) Pulmonary edema: Code(s): J81.1 - Chronic pulmonary edema Status: Acute Assessment and Plan: Acute diastolic dysfunction. Echocardiogram showed normal EF 60-65%, mild LVH, diastolic dysfunction grade 1, no pulmonary hypertension. cardiology was consulted and switched Lasix to p.o. 20 mg which she would like her discharged on. Tolerating it well and lungs are clear. (4) Elevated troponin: Code(s): R77.8 - Other specified abnormalities of plasma proteins Status: Acute Assessment and Plan: May be related to the congestive heart failure. Patient has no complaints of chest pain this time. Continue with aspirin. (5) Essential (primary) hypertension: Code(s): I10 - Essential (primary) hypertension Status: Chronic Assessment and Plan: blood pressure this morning was 136/50. Will continue patient's Coreg and losartan. Will hold her hydrochlorothiazide and instead
[2021-07-05] VITALS (18 sets, daily range): BP systolic 112–145; BP diastolic 44–84; PULSE 67–88; RESP 16–21; TEMP 36.3–37.1; O2SAT 93–98
[2021-07-05] MEDS: ALBUTEROL SULFATE NEB 2.5 MG/0.5 ML INH 5 MG INHALATION ×4 (01:47→20:52)
[2021-07-05] MEDS: IPRATROPIUM BR 0.02% INH SOLN 0.5 MG/2.5 ML VIAL INHALATION ×4 (01:47→20:52)
[2021-07-05] MEDS: FUROSEMIDE 20 MG TABLET PO (08:11)
[2021-07-05] MEDS: LOSARTAN POTASSIUM 50 MG TABLET BY MOUTH ×2 (08:11→20:00)
[2021-07-05] MEDS: CHOLECALCIFEROL 1,000 UNITS TABLET 2000 UNITS PO (08:11)
[2021-07-05] MEDS: ENOXAPARIN 40 MG/0.4 ML SYRINGE SUB-Q (08:11)
[2021-07-05] MEDS: ASPIRIN 81 MG ENTERIC TABLET PO (08:11)
[2021-07-05] MEDS: carvediloL 12.5 MG TABLET BY MOUTH ×2 (08:11→19:59)
--- NOTE | 2021-07-05 09:05 | PM.IMPN ---
Progress Note: A&P Assessment and Plan (1) Acute respiratory failure with hypoxia: Code(s): J96.01 - Acute respiratory failure with hypoxia Status: Acute Assessment and Plan: Patient is an 85-year-old woman with a history of hypertension, who presented to emergency room with increased shortness of breath over the last few days and went to an urgent care yesterday where they found her to be hypoxic and she was sent to our emergency room for further evaluation. initial vitals showed elevated blood pressure 135/89, heart rate 100 beats per minute, afebrile, normal oxygenation at 96% on room air. Initial labs showed leukocytosis at 21,600, normal H&H, elevated neutrophil count at 84% and neutrophils elevated at 9%, normal coag panel, normal ABG on 2 L via nasal cannula. Hyponatremia at 127, normal renal function, normal LFTs, troponin elevated 0.043 x2. BNP elevated at 1860. Urinalysis showed 2+ blood, trace leukocyte esterase, WBCs 7-9, not appear to be a UTI. Rapid COVID test was negative in the emergency room. Chest x-ray showed congestive heart failure with pulmonary interstitial and subpleural edema. Patient was admitted to the hospital with suspected pneumonia and congestive heart failure with further workup and evaluation. Blood cultures are negative to date. Leukocytosis is improving. Continue oral Lasix 20 mg daily and she has been tolerating this well with a normal renal function and clear lung sounds on exam IV Solu-Medrol was discontinued because her lungs are clear without any wheezing, patient did not have any history COPD or asthma and she is not on any inhalers. She has not had any wheezing or abnormality with discontinuation. Will continue on IV antibiotics with IV Rocephin and azithromycin for community-acquired pneumonia #4 patient is currently 94% on room air. Stable for discharge at this time. We are working on SNF authorization and insurance at this time. The patient is otherwise walking fairly well and we are trying to reach out to the family to see if they would like to discharge with home health instead as long as the family can provide 24/7 care at least initially when she returns home to make sure she does not have a fall or any issues. Working with Care coordination in this aspect. continue monitoring. (2) Leukocytosis: Code(s): D72.829 - Elevated white blood cell count, unspecified Status: Acute Assessment and Plan: Most likely from underlying pneumonia Much improved today I believe the steroids are now out of her system. (3) Pulmonary edema: Code(s): J81.1 - Chronic pulmonary edema Status: Acute Assessment and Plan: Acute diastolic dysfunction. Echocardiogram showed normal EF 60-65%, mild LVH, diastolic dysfunction grade 1, no pulmonary hypertension. cardiology was consulted and switched Lasix to p.o. 20 mg which she would like her discharged on. Tolerating it well and lungs are clear. (4) Elevated troponin: Code(s): R77.8 - Other specified abnormalities of plasma proteins Status: Acute Assessment and Plan: May be related to the congestive heart failure. Patient has no complaints of chest pain this time. Continue with aspirin. (5) Essential (primary) hypertension: Code(s): I10 - Essential (primary) hypertension Status: Chronic Assessment and Plan: blood pressure this morning was 132/61. Will continue patient's Coreg and losartan. Will hold her hydrochlorothiazide and instead use Lasix. Continue monitoring Will pressure make adjustments if needed. (6) Hyperlipidemia LDL goal <130: Code(s): E78.5 - Hyperlipidemia, unspecified Status:
--- NOTE | 2021-07-05 10:32 | PM.PNCARD ---
Progress Note: A&P Assessment and Plan (1) CHF (congestive heart failure): Code(s): I50.9 - Heart failure, unspecified Status: Acute Assessment and Plan: diastolic in etiology. Continue low-dose furosemide, carvedilol, losartan. (2) Elevated troponin: Code(s): R77.8 - Other specified abnormalities of plasma proteins Status: Acute Assessment and Plan: Not related to ACS. (3) Essential (primary) hypertension: Code(s): I10 - Essential (primary) hypertension Status: Chronic Assessment and Plan: At reasonable goal (4) Hypokalemia: Code(s): E87.6 - Hypokalemia Status: Acute Assessment and Plan: replaced No changes to cardiac regimen Subjective Date/time seen: 07/05/21 10:32 Interval history: 85-year-old admitted with shortness of breath Date of service 07/04/2021: She feels better. Shortness breath is better. No chest pain. No swelling. Date of service 07/05/2021: Strength is a little bit better. Feels better today. No chest pain, shortness breath or swelling Review of Systems Constitutional: Constitutional: Reports no additional constitutional complaints Eyes: Eyes: Reports no additional eye complaints ENT: Reports system reviewed and no additional complaints, except as documented Cardiovascular: Cardiovascular: Reports no additional cardiovascular complaints and Reports dyspnea Respiratory: Respiratory: Reports dyspnea Gastrointestinal: Gastrointestinal: Reports no additional gastrointestinal complaints Musculoskeletal: Musculoskeletal: Reports arthralgias Integumentary/Breasts: Skin/Breast: Reports system reviewed and no additional complaints, except as docu Endocrine: Endocrine: Reports no additional endocrine complaints Hematologic/Lymphatic: Hematologic/Lymphatic: Reports no additional hematologic/lymphatic complaints Allergic/Immunologic: Allergic/Immunologic: Reports no additional allergic/immunologic complaints Exam Const: General: comfortable and no acute distress Other: Pleasant elderly lady eating her breakfast watching television HENMT: Mouth: Yes moist mucous membranes Eyes: Sclera: sclerae normal Neck: Neck: supple and no JVD Other: carotid pulses are intact bilaterally no significant bruits are audible Resp: Effort & Inspection: normal respiratory effort Other: basilar crackles are noted Cardio: Rate: regular rate Rhythm: regular rhythm Other: very soft systolic murmur at the left sternal border without radiation S4 is audible no S3 or rub GI: Auscultation: normal bowel sounds Skin: General skin exam: normal color Neuro: Cognition (Neuro): normal cognition Extrem: Other: adequate distal perfusion no significant peripheral edema Objective Data Vital Signs Vital Signs: Vital Signs - 24 hr 07/04/21 12:00 07/04/21 14:05 07/04/21 14:13 Temperature 36.4 C Pulse Rate 74 65 61 Respiratory Rate 16 18 18 Blood Pressure 132/52 L Pulse Oximetry 92 07/04/21 16:00 07/04/21 20:00 07/04/21 20:09 Temperature 36.4 C 36.3 C L Pulse Rate 74 75 66 Respiratory Rate 16 16 Blood Pressure 130/54 L 145/51 H Pulse Oximetry 93 94 07/04/21 20:24 07/04/21 20:28 07/05/21 00:00 Temperature 37.1 C Pulse Rate 71 74 76 Respiratory Rate 16 16 16 Blood Pressure 138/84 Pulse Oximetry 93 07/05/21 01:49 07/05/21 01:54 07/05/21 04:00 Temperature 36.4 C Pulse Rate 73 75 67 Respiratory Rate 18 18 16 Blood Pressure 145/79 H Pulse Oximetry 93 07/05/21 08:11 07/05/21 09:10 07/05/21 09:19 Temperature Pulse Rate 88 78 82 Respiratory Rate 18 18 Blood Pressure Pulse Oximetry Intake/Output Intake/Output: Intake & Output 07/02/21 07/03/21 07/04/21 07/05/21 23:59 23:59 23:59 23:59 Intake Total 1100 2260 1970 440 Output Total 800 2150 1200 800 Balance 300 110 770 -360 Meds/Results Medications: Active Medications Generic Name Dose Route Sta
[2021-07-05] MEDS: MELATONIN 5 MG TABLET PO (20:07)
[2021-07-06] VITALS (11 sets, daily range): BP systolic 110–144; BP diastolic 52–79; PULSE 65–90; RESP 16–24; TEMP 36.2–36.6; O2SAT 94–97
[2021-07-06] MEDS: ALBUTEROL SULFATE NEB 2.5 MG/0.5 ML INH 5 MG INHALATION (02:37)
[2021-07-06] MEDS: IPRATROPIUM BR 0.02% INH SOLN 0.5 MG/2.5 ML VIAL INHALATION (02:37)
[2021-07-06 06:15] LABS: Hematocrit 34.6 % (37.0-47.0); Hemoglobin 11.7 g/dL (12.0-15.0); Mean Corpuscular HGB Conc 33.8 g/dl (32-36); Mean Corpuscular Hemoglobin 31.8 pg (26-34); Mean Platelet Volume 9.7 fl (7.4-10.4); Platelet Count Result 255 k/mm3 (150-375); Red Blood Count 3.68 M/mm3 (4.2-5.4); Red Cell Distribution Width 12.4 % (11.5-14.5)
[2021-07-06 06:31] LABS: Anion Gap 8 mmol/L (8-16); Blood Urea Nitrogen 19 mg/dL (7-17); Calcium 8.5 mg/dL (8.4-10.2); Carbon Dioxide 26 mmol/L (22-30); Chloride 99 mmol/L (98-107); Estimated CRCL calculation 42 ml/min; Estimated Glomerular Filt Rate > 60; Glucose 101 mg/dL (65-110); Potassium 3.7 mmol/L (3.4-5.0); Sodium 133 mmol/L (137-145)
[2021-07-06] MEDS: carvediloL 12.5 MG TABLET BY MOUTH ×2 (08:09→20:30)
[2021-07-06] MEDS: ASPIRIN 81 MG ENTERIC TABLET PO (08:09)
[2021-07-06] MEDS: FUROSEMIDE 20 MG TABLET PO (08:09)
[2021-07-06] MEDS: CHOLECALCIFEROL 1,000 UNITS TABLET 2000 UNITS PO (08:09)
[2021-07-06] MEDS: ENOXAPARIN 40 MG/0.4 ML SYRINGE SUB-Q (08:10)
[2021-07-06] MEDS: LOSARTAN POTASSIUM 50 MG TABLET BY MOUTH ×2 (08:10→20:30)
--- NOTE | 2021-07-06 09:01 | PM.PNCARD ---
Progress Note: A&P Assessment and Plan (1) CHF (congestive heart failure): Code(s): I50.9 - Heart failure, unspecified Status: Acute Assessment and Plan: diastolic in etiology. Continue low-dose furosemide, carvedilol, losartan. (2) Elevated troponin: Code(s): R77.8 - Other specified abnormalities of plasma proteins Status: Acute Assessment and Plan: Not related to ACS. (3) Essential (primary) hypertension: Code(s): I10 - Essential (primary) hypertension Status: Chronic Assessment and Plan: At reasonable goal (4) Hypokalemia: Code(s): E87.6 - Hypokalemia Status: Acute Assessment and Plan: Will give her 40 mEq p.o. potassium x1 today Subjective Date/time seen: 07/06/21 09:01 Interval history: 85-year-old admitted with shortness of breath Date of service 07/04/2021: She feels better. Shortness breath is better. No chest pain. No swelling. Date of service 07/05/2021: Strength is a little bit better. Feels better today. No chest pain, shortness breath or swelling Date of service 07/06/2021: No complaints. Awaiting placement. No chest, shortness Review of Systems Constitutional: Constitutional: Reports no additional constitutional complaints Eyes: Eyes: Reports no additional eye complaints ENT: Reports system reviewed and no additional complaints, except as documented Cardiovascular: Cardiovascular: Reports no additional cardiovascular complaints and Reports dyspnea Respiratory: Respiratory: Reports dyspnea Gastrointestinal: Gastrointestinal: Reports no additional gastrointestinal complaints Musculoskeletal: Musculoskeletal: Reports arthralgias Integumentary/Breasts: Skin/Breast: Reports system reviewed and no additional complaints, except as docu Endocrine: Endocrine: Reports no additional endocrine complaints Hematologic/Lymphatic: Hematologic/Lymphatic: Reports no additional hematologic/lymphatic complaints Allergic/Immunologic: Allergic/Immunologic: Reports no additional allergic/immunologic complaints Exam Const: General: comfortable and no acute distress Other: Pleasant elderly lady eating her breakfast watching television HENMT: Mouth: Yes moist mucous membranes Eyes: Sclera: sclerae normal Neck: Neck: supple and no JVD Other: carotid pulses are intact bilaterally no significant bruits are audible Resp: Effort & Inspection: normal respiratory effort Other: basilar crackles are noted Cardio: Rate: regular rate Rhythm: regular rhythm Other: very soft systolic murmur at the left sternal border without radiation S4 is audible no S3 or rub GI: Auscultation: normal bowel sounds Skin: General skin exam: normal color Neuro: Cognition (Neuro): normal cognition Extrem: Other: adequate distal perfusion no significant peripheral edema Objective Data Vital Signs Vital Signs: Vital Signs - 24 hr 07/05/21 09:10 07/05/21 09:19 07/05/21 10:30 Temperature 36.3 C L Pulse Rate 78 82 77 Respiratory Rate 18 18 20 Blood Pressure 132/61 Pulse Oximetry 98 07/05/21 10:35 07/05/21 13:35 07/05/21 13:49 Temperature 36.3 C L Pulse Rate 75 73 Respiratory Rate 20 18 Blood Pressure 118/70 Pulse Oximetry 94 97 07/05/21 13:55 07/05/21 17:45 07/05/21 19:18 Temperature 36.4 C L 36.6 C Pulse Rate 77 79 76 Respiratory Rate 18 20 18 Blood Pressure 112/61 136/76 Pulse Oximetry 94 96 07/05/21 19:59 07/05/21 20:52 07/05/21 21:00 Temperature Pulse Rate 80 80 88 Respiratory Rate 16 21 H Blood Pressure Pulse Oximetry 07/05/21 23:13 07/06/21 02:37 07/06/21 02:46 Temperature 36.3 C L Pulse Rate 72 84 90 Respiratory Rate 18 20 19 Blood Pressure 116/44 L Pulse Oximetry 93 07/06/21 03:07 07/06/21 08:09 Temperature 36.6 C Pulse Rate 73 84 Respiratory Rate 16 Blood Pressure 136/100 H Pulse Oximetry 94 Intake/Output Intake/Output: Intake & Output
--- NOTE | 2021-07-06 11:33 | PM.IMPN ---
Progress Note: A&P Assessment and Plan (1) Acute respiratory failure with hypoxia: Code(s): J96.01 - Acute respiratory failure with hypoxia Status: Acute Assessment and Plan: Patient is an 85-year-old woman with a history of hypertension, who presented to emergency room with increased shortness of breath over the last few days and went to an urgent care yesterday where they found her to be hypoxic and she was sent to our emergency room for further evaluation. initial vitals showed elevated blood pressure 135/89, heart rate 100 beats per minute, afebrile, normal oxygenation at 96% on room air. Initial labs showed leukocytosis at 21,600, normal H&H, elevated neutrophil count at 84% and neutrophils elevated at 9%, normal coag panel, normal ABG on 2 L via nasal cannula. Hyponatremia at 127, normal renal function, normal LFTs, troponin elevated 0.043 x2. BNP elevated at 1860. Urinalysis showed 2+ blood, trace leukocyte esterase, WBCs 7-9, not appear to be a UTI. Rapid COVID test was negative in the emergency room. Chest x-ray showed congestive heart failure with pulmonary interstitial and subpleural edema. Patient was admitted to the hospital with suspected pneumonia and congestive heart failure with further workup and evaluation. Blood cultures are negative to date. Leukocytosis normalized Continue oral Lasix 20 mg daily and she has been tolerating this well with a normal renal function and clear lung sounds on exam IV Solu-Medrol was discontinued because her lungs are clear without any wheezing, patient did not have any history COPD or asthma and she is not on any inhalers. She has not had any wheezing or abnormality with discontinuation. Will continue on IV antibiotics with IV Rocephin and azithromycin for community-acquired pneumonia #4 patient is currently 94% on room air. Stable for discharge at this time. We are working on SNF authorization and insurance at this time. The patient is otherwise walking fairly well and we are trying to reach out to the family to see if they would like to discharge with home health instead as long as the family can provide 24/7 care at least initially when she returns home to make sure she does not have a fall or any issues. Working with Care coordination in this aspect. continue monitoring. (2) Leukocytosis: Code(s): D72.829 - Elevated white blood cell count, unspecified Status: Acute Assessment and Plan: Most likely from underlying pneumonia Normalized. (3) Pulmonary edema: Code(s): J81.1 - Chronic pulmonary edema Status: Acute Assessment and Plan: Acute diastolic dysfunction. Echocardiogram showed normal EF 60-65%, mild LVH, diastolic dysfunction grade 1, no pulmonary hypertension. cardiology was consulted and switched Lasix to p.o. 20 mg which she would like her discharged on. Tolerating it well and lungs are clear. (4) Elevated troponin: Code(s): R77.8 - Other specified abnormalities of plasma proteins Status: Acute Assessment and Plan: May be related to the congestive heart failure. Patient has no complaints of chest pain this time. Continue with aspirin. (5) Essential (primary) hypertension: Code(s): I10 - Essential (primary) hypertension Status: Chronic Assessment and Plan: blood pressure this morning was 144/79. Will continue patient's Coreg and losartan. Will hold her hydrochlorothiazide and instead use Lasix. Continue monitoring Will pressure make adjustments if needed. (6) Hyperlipidemia LDL goal <130: Code(s): E78.5 - Hyperlipidemia, unspecified Status: Acute Assessment and Plan: Total cholesterol alin
[2021-07-06] MEDS: POTASSIUM CHLORIDE 20 MEQ TABLET 40 MEQ PO (12:00)
[2021-07-06] MEDS: MELATONIN 5 MG TABLET PO (20:32)
[2021-07-07 02:58] VITALS: BP 122/58; PULSE 70; RESP 17; TEMP 36.6; O2SAT 94
[2021-07-07 08:07] VITALS: BP 144/52
[2021-07-07 08:08] VITALS: PULSE 79
[2021-07-07] MEDS: carvediloL 12.5 MG TABLET BY MOUTH (08:08)
[2021-07-07] MEDS: ASPIRIN 81 MG ENTERIC TABLET PO (08:08)
[2021-07-07] MEDS: LOSARTAN POTASSIUM 50 MG TABLET BY MOUTH (08:09)
[2021-07-07] MEDS: FUROSEMIDE 20 MG TABLET PO (08:09)
[2021-07-07] MEDS: CHOLECALCIFEROL 1,000 UNITS TABLET 2000 UNITS PO (08:09)
[2021-07-07] MEDS: ENOXAPARIN 40 MG/0.4 ML SYRINGE SUB-Q (08:09)
--- NOTE | 2021-07-07 09:09 | PM.PNCARD ---
Progress Note: A&P Assessment and Plan (1) CHF (congestive heart failure): Code(s): I50.9 - Heart failure, unspecified Status: Acute Assessment and Plan: diastolic in etiology. Continue low-dose furosemide, carvedilol, losartan. (2) Elevated troponin: Code(s): R77.8 - Other specified abnormalities of plasma proteins Status: Acute Assessment and Plan: Not related to ACS. (3) Essential (primary) hypertension: Code(s): I10 - Essential (primary) hypertension Status: Chronic Assessment and Plan: At reasonable goal (4) Hypokalemia: Code(s): E87.6 - Hypokalemia Status: Acute Assessment and Plan: Replace No changes in cardiac regimen today. Subjective Date/time seen: 07/07/21 09:09 Interval history: 85-year-old admitted with shortness of breath Date of service 07/04/2021: She feels better. Shortness breath is better. No chest pain. No swelling. Date of service 07/05/2021: Strength is a little bit better. Feels better today. No chest pain, shortness breath or swelling Date of service 07/06/2021: No complaints. Awaiting placement. No chest, shortness Date of service 06/27/2021: Feels okay. No new complaints. No chest pain, shortness breath, edema Review of Systems Constitutional: Constitutional: Reports no additional constitutional complaints Eyes: Eyes: Reports no additional eye complaints ENT: Reports system reviewed and no additional complaints, except as documented Cardiovascular: Cardiovascular: Reports no additional cardiovascular complaints and Reports dyspnea Respiratory: Respiratory: Reports dyspnea Gastrointestinal: Gastrointestinal: Reports no additional gastrointestinal complaints Musculoskeletal: Musculoskeletal: Reports arthralgias Integumentary/Breasts: Skin/Breast: Reports system reviewed and no additional complaints, except as docu Endocrine: Endocrine: Reports no additional endocrine complaints Hematologic/Lymphatic: Hematologic/Lymphatic: Reports no additional hematologic/lymphatic complaints Allergic/Immunologic: Allergic/Immunologic: Reports no additional allergic/immunologic complaints Exam Const: General: comfortable and no acute distress Other: Pleasant elderly lady eating her breakfast watching television HENMT: Mouth: Yes moist mucous membranes Eyes: Sclera: sclerae normal Neck: Neck: supple and no JVD Other: carotid pulses are intact bilaterally no significant bruits are audible Resp: Effort & Inspection: normal respiratory effort Other: basilar crackles are noted Cardio: Rate: regular rate Rhythm: regular rhythm Other: very soft systolic murmur at the left sternal border without radiation S4 is audible no S3 or rub GI: Auscultation: normal bowel sounds Skin: General skin exam: normal color Neuro: Cognition (Neuro): normal cognition Extrem: Other: adequate distal perfusion no significant peripheral edema Objective Data Vital Signs Vital Signs: Vital Signs - 24 hr 07/06/21 09:14 07/06/21 12:25 07/06/21 14:00 Temperature 36.3 C L 36.4 C L Pulse Rate 69 70 Respiratory Rate 20 24 H Blood Pressure 144/79 H 120/62 120/68 Pulse Oximetry 97 97 07/06/21 18:30 07/06/21 19:07 07/06/21 20:30 Temperature 36.5 C 36.3 C L Pulse Rate 72 65 65 Respiratory Rate 24 H 17 Blood Pressure 122/60 130/58 L Pulse Oximetry 96 97 07/06/21 23:16 07/07/21 02:58 07/07/21 08:07 Temperature 36.2 C L 36.6 C Pulse Rate 71 70 Respiratory Rate 16 17 Blood Pressure 122/68 122/58 L 144/52 H Pulse Oximetry 95 94 07/07/21 08:08 Temperature Pulse Rate 79 Respiratory Rate Blood Pressure Pulse Oximetry Intake/Output Intake/Output: Intake & Output 07/04/21 07/05/21 07/06/21 07/07/21 23:59 23:59 23:59 23:59 Intake Total 2270 2160 1365 460 Output Total 1200 950 350 800 Balance 1070 1210 1015 -340 Meds/Results Medications: Active Medications Gener
--- NOTE | 2021-07-07 10:29 | PM.DS ---
DS: Admitting Diagnosis Discharge Date 07/07/21 Admitting Diagnosis SOB DS: Discharge Diagnosis Discharge Diagnosis (1) Acute respiratory failure with hypoxia: Code(s): J96.01 - Acute respiratory failure with hypoxia Status: Acute Assessment and Plan: Patient is an 85-year-old woman with a history of hypertension, who presented to emergency room with increased shortness of breath over the last few days and went to an urgent care yesterday where they found her to be hypoxic and she was sent to our emergency room for further evaluation. initial vitals showed elevated blood pressure 135/89, heart rate 100 beats per minute, afebrile, normal oxygenation at 96% on room air. Initial labs showed leukocytosis at 21,600, normal H&H, elevated neutrophil count at 84% and neutrophils elevated at 9%, normal coag panel, normal ABG on 2 L via nasal cannula. Hyponatremia at 127, normal renal function, normal LFTs, troponin elevated 0.043 x2. BNP elevated at 1860. Urinalysis showed 2+ blood, trace leukocyte esterase, WBCs 7-9, not appear to be a UTI. Rapid COVID test was negative in the emergency room. Chest x-ray showed congestive heart failure with pulmonary interstitial and subpleural edema. Patient was admitted to the hospital with suspected pneumonia and congestive heart failure with further workup and evaluation. Blood cultures are negative to date. Leukocytosis normalized Continue oral Lasix 20 mg daily and she has been tolerating this well with a normal renal function and clear lung sounds on exam IV Solu-Medrol was discontinued because her lungs are clear without any wheezing, patient did not have any history COPD or asthma and she is not on any inhalers. She has not had any wheezing or abnormality with discontinuation. Will continue on IV antibiotics with IV Rocephin and azithromycin for community-acquired pneumonia #7- She does not need anymore antibiotics at discharge. Treatment is completed. patient is currently 94% on room air. Stable for discharge at this time to go home with Home health. Follow up instructions given. Return to ER warnings given. Talked to Daughter Jessica who understands and agrees with the plan. All questions answered. (2) CHF (congestive heart failure): Code(s): I50.9 - Heart failure, unspecified Status: Acute Assessment and Plan: Acute diastolic dysfunction. Echocardiogram showed normal EF 60-65%, mild LVH, diastolic dysfunction grade 1, no pulmonary hypertension. cardiology was consulted and switched Lasix to p.o. 20 mg which she would like her discharged on. Tolerating it well and lungs are clear. (3) Leukocytosis: Code(s): D72.829 - Elevated white blood cell count, unspecified Status: Acute Assessment and Plan: Most likely from underlying pneumonia Normalized. (4) Elevated troponin: Code(s): R77.8 - Other specified abnormalities of plasma proteins Status: Acute Assessment and Plan: May be related to the congestive heart failure. Patient has no complaints of chest pain this time. Continue with aspirin. (5) Essential (primary) hypertension: Code(s): I10 - Essential (primary) hypertension Status: Chronic Assessment and Plan: blood pressure this morning was 144/59. Will continue patient's Coreg and losartan. Will hold her hydrochlorothiazide and instead use Lasix 20 mg. (6) Hyperlipidemia LDL goal <130: Code(s): E78.5 - Hyperlipidemia, unspecified Status: Acute Assessment and Plan: Total cholesterol normal, LDL 79. Well controlled at this time. she is not on any cholesterol medications currently.
== END 2021-07-07 12:54 | disposition home health service (06) | DRG 193 ==
LOC: ANHED 09:42 → ANHICU 12:06 → ANH2MED 18:01
PROVIDERS: Nurse Practitioner; Physician Assistant; Admitting Provider Family Medicine; Emergency Provider General Practice; PCP Internal Medicine; Visit Provider Internal Medicine
DX: J18.9 Pneumonia, unspecified organism (principal); J96.01 Acute respiratory failure with hypoxia; I50.31 Acute diastolic (congestive) heart failure; E87.1 Hypo-osmolality and hyponatremia; I11.0 Hypertensive heart disease with heart failure; Z20.822 Contact with and (suspected) exposure to COVID-19; D72.829 Elevated white blood cell count, unspecified; E78.5 Hyperlipidemia, unspecified; M19.90 Unspecified osteoarthritis, unspecified site; M17.11 Unilateral primary osteoarthritis, right knee; M06.9 Rheumatoid arthritis, unspecified; E87.6 Hypokalemia
CPT/HCPCS: 36415; 36600; 71045; 80048; 80053; 80061; 81001; 82375; 82570; 82728; 82805; 83050; 83605; 83615; 83735; 83880; 84300; 84443; 84484; 85025; 85027; 85055; 85610; 85730; 87040; 87086; 87088; 87426; 93005; 93306; 94640; 96365; 96367; 96372; 96375; 96376; 97110; 97116; 97161; 97165; 97530; 97535; 99285; A9270; C9803; G0378; J0456; J0696; J1650; J1940; J2930

== ENCOUNTER 2022-07-11 23:33 | Emergency (ER) | payer OTHER, SELFPAY ==
--- NOTE | ~2022-07-11 | XR_ITS ---
EXAMINATION: XR chest 1V portable DATE: 07/12/2022 02:02 INDICATION: Cough. Shortness of breath. COVID-19 pneumonia. TECHNIQUE: A single frontal view of the chest was obtained. COMPARISON: Chest single view 07/01/2021, chest 2 views 08/27/2018 FINDINGS: There are airspace opacities in the lower lung zones. No pleural effusion or pneumothorax. The heart size is normal. There are prominent paracardial fat pads. IMPRESSION: 1. Airspace opacities in the lower lung zones, consistent with atelectasis versus pneumonia. Reviewed, dictated and finalized at location [facility]. [employer] IMPRESSION: 1. Airspace opacities in the lower lung zones, consistent with atelectasis vers us pneumonia.
[2022-07-11 23:46] VITALS: BP 166/74; PULSE 77; RESP 18; TEMP 36.6; O2SAT 95
[2022-07-12 01:58] VITALS: BP 189/62; PULSE 68; RESP 18; O2SAT 96; O2SAT 97
--- NOTE | 2022-07-12 02:51 | ED.GENADULT ---
HPI - General Adult General Chief complaint: Unspecified Stated complaint: COVID+, voice hoarseness Time Seen by Provider: 07/12/22 01:37 Source: RN notes reviewed History of Present Illness HPI narrative: Patient presents emergency department from home for hoarse voice. Patient states that she had began to feel ill approximately 3 days ago on . She states that she had just been feeling tired and developed a hoarse throat she took a COVID test yesterday that was positive and had had a worsening laryngitis she states that her daughters wonder to come to be evaluated today secondary to this she states she is had no fevers or chills she denies any cough or shortness of breath she denies chest pain abdominal pain nausea vomiting or any other symptoms. Related Data Home Medications Medication Instructions Recorded Confirmed aspirin 81 mg tablet,delayed 81 mg PO DAILY 06/29/19 06/03/22 release Allergies Allergy/AdvReac Type Severity Reaction Status Date / Time ioversol Allergy Unknown Unknown Verified 07/11/22 23:49 Sulfa (Sulfonamide Allergy Hives Verified 07/11/22 23:49 Antibiotics) Contrast Media Allergy Intermediate HIVES Uncoded 06/03/22 08:38 Review of Systems Review of Systems: Gen.: Denies fevers or chills reports testing positive for COVID-19 ENT: See HPI Respiratory: Denies shortness of breath or cough CV: Denies chest pain or palpitations GI: Denies abdominal pain nausea, emesis or diarrhea Musculoskeletal: Denies back pain or muscle pain Neuro: Denies numbness, tingling, weakness or focal weakness Skin: Denies rash Except as documented, all other systems reviewed and negative [facility] Past Medical History Medical History Arthritis Degenerative joint disease of right knee Essential (primary) hypertension Hematuria Hypertension Impacted cerumen of both ears Impairment of balance Knee joint effusion Onychomycosis of great toe Pneumonia Postmenopausal Rheumatoid arthritis Right knee DJD Shortness of breath Unsteady gait UTI (urinary tract infection) Vision changes Weight gain Surgical History Surgical History No pertinent past surgical history Family History Family History Father Family history of heart disease in male family member before age 55 Patient's father is Family history of cardiovascular disease Sibling Family history of heart disease in male family member before age 55 Patient's sister is Patient's brother is Family history of cardiovascular disease Mother Patient's mother is Acute myocardial infarction Other Cerebrovascular accident Family history of arthritis Heart disease Hypertension Malignant neoplasm Social History Social History Social History: The patient has 5 children. She is a homemaker. Her daughter is the power roll cutter for healthcare. She is and lives home alone. She is a lifelong nonsmoker. She does not use any alcohol marijuana or illicit drugs. Code status full code Smoking status: Never smoker Second hand tobacco smoke exposure: No Alcohol intake: never Substance use: never Substance use type: does not use Lack of Transportation: No Lack of Food: Never True Current Housing: I Have Housing Concerned About Future Housing: No Difficulty Paying Gas/Electric Bills: YES Difficulty Paying for Meds: No Currently Unemployed: No Education: High School Diploma/GED Difficulty w/ Childcare or Family Care: No Gender identity (if verbalized by the patient): Female Sexual Orientation (if Verbalized by the Patient): Straight or Heterosexual Spiritual care concerns: No Exam Narrative: APPEARANCE: No acute distress
[2022-07-12 03:30] VITALS: BP 177/62; PULSE 68; RESP 15; O2SAT 96
[2022-07-12 03:38] LABS: Influenza A QL RT-PCR Negative (Negative); Influenza B QL RT-PCR Negative (Negative); RSV RNA, RT-PCR Negative (Negative); SARS-CoV-2 RNA PCR Positive
--- NOTE | 2022-07-12 04:47 | PC.NURSE ---
Pt walking pulse ox 96%
[2022-07-12 05:33] VITALS: BP 175/62; PULSE 72; RESP 18; O2SAT 96
== END 2022-07-12 06:35 | disposition home or self-care (01) ==
PROVIDERS: Emergency Provider Emergency Medicine; PCP Internal Medicine
DX: U07.1 COVID-19 (principal); M19.90 Unspecified osteoarthritis, unspecified site; I10 Essential (primary) hypertension
CPT/HCPCS: 71045; 87637; 99283

== ENCOUNTER 2023-12-28 17:05 | Outpatient (CLI) | payer OTHER, SELFPAY ==
--- NOTE | ~2023-12-28 | XR_ITS ---
EXAM: XR_[id number]_CR, XR_[id number]_CR DATE: 12/28/2023 17:20 HISTORY: M17.11 - Unilateral primary osteoarthritis, right knee . COMPARISON: 06/11/2022, 04/22/2020, images only. FINDINGS: Decreased mineralization. No fracture or dislocation. No lytic or blastic lesion. Moderate medial and lateral joint space narrowing bilaterally. Moderate tricompartmental osteophytosis, worse in the right knee, where there is a prominent posteriorly directed osteophyte. Exaggerated valgus al ignment, more pronounced in the right knee. Trace right and small volume left joint fluid. No erosion or periosteal change. Mild scattered vascular calcifications. IMPRESSION: Osteopenia. Moderate tricompartmental bilateral knee osteoarthritis, worse in the right k nee. Small bilateral knee joint effusions, larger in the left knee. Reviewed, dictated and finalized at [facility]. IMPRESSION: Osteopenia. Moderate tricompartmental bilateral knee osteoarthritis , worse in the right knee. Small bilateral knee joint effusions, larger in the left knee.
== END 2023-12-28 17:06 | disposition home or self-care (01) ==
LOC: ANHIMG 17:07
PROVIDERS: PCP Family Medicine; Visit Provider Family Medicine
DX: M17.0 Bilateral primary osteoarthritis of knee (principal); M25.462 Effusion, left knee; M25.461 Effusion, right knee; M85.88 Other specified disorders of bone density and structure, other site
CPT/HCPCS: 73560

== ENCOUNTER 2025-01-03 12:46 | Inpatient (IN) | payer OTHER, SELFPAY ==
--- NOTE | ~2025-01-03 | CT_ITS ---
CT brain wo con Ordering provider: Kvng Camp MD History: 89 years Female with . fall, head trauma . Comparison: None. Technique: CT of the head without contrast. Radiation reduction technique utilized. The dose-length p roduct was 605.33 mGy-cm. Left renal cyst FINDINGS: BRAIN PARENCHYMA AND CSF SPACES: Mild leukoaraiosis and diffuse cortical atrophy. Mild atheromatous d isease. No midline shift, mass effect or hemorrhage. The brain parenchyma and CSF spaces are otherwi se normal. VISUALIZED PARANASAL SINUSES: Well aerated. MASTOIDS: Well aerated. BONES: The bones appear intact. SOFT TISSUES: Visualized nasopharynx is normal. Superficial soft tissues are normal. IMPRESSION: No acute intracranial findings. Reviewed, dictated and finalized at location A.
--- NOTE | ~2025-01-03 | CT_ITS ---
EXAMINATION: CT cervical spine wo con DATE: 01/03/2025 14:44 INDICATION: Fall with head injury TECHNIQUE: Computed tomography (CT) of the cervical spine was performed without intravenous contrast. Automated exposure control and iterative reconstruction technique were employed. The dose-length pro duct was 248.17 mGy-cm. COMPARISON: None FINDINGS: Mild reversal of the normal cervical lordosis. 2 mm anterolisthesis C3 on C4. Moderate osteoarthritis at the atlantoaxial articulation. Vertebral body heights are normal. No fracture. Moderate disc heig ht loss with degenerative endplate changes at C4-C5 through C6-C7. Mild disc height loss at C3-C4. Se yrn uncovertebral osteoarthritis on the left at C4-C5 and on the right at C5/C6 and C6-C7. Mild to m oderate osteoarthritis the remaining cervical uncovertebral joints. Small posterior disc osteophyte c omplexes resulting in mild central canal stenosis at C4-C5 through C6-C7. Multilevel facet osteoarthr itis, severe bilaterally at C2-C3, on the left at C3-C4 and on the right and C7-T1. Mild to moderate facet osteoarthritis the remaining cervical and visualized upper thoracic levels. There is multilevel minimal to mild bilateral neural from stenosis at multiple levels on the left and right sides of the cervical spine. Atherosclerotic calcifications at the left carotid bulb. Cervical soft tissues are o therwise unremarkable. Mild biapical pleural-parenchymal scarring. IMPRESSION: 1. Moderate cervical spondylosis. No acute osseous abnormality. Reviewed, dictated and finalized at location A.
--- NOTE | ~2025-01-03 | XR_ITS ---
EXAM/ PROCEDURE: XR shoulder RT min 2V - 01/03/2025 14:40 CDT HISTORY: 89 years old Female with fall COMPARISON: None available TECHNIQUE: Four view(s) FINDINGS/ IMPRESSION: There are no fractures or dislocations.Joint spaces are within normal limits Reviewed, dictated and finalized at location A.
--- NOTE | ~2025-01-03 | XR_ITS ---
EXAM/ PROCEDURE: XR hand LT 2V - 01/03/2025 14:50 CDT HISTORY: 89 years old Female with fall COMPARISON: None available TECHNIQUE: Two view(s) FINDINGS/ IMPRESSION: There are no fractures or dislocations.Joint spaces are within normal limits Reviewed, dictated and finalized at location A.
--- NOTE | ~2025-01-03 | XR_ITS ---
HISTORY: mid femur pain after fall COMPARISON: None TECHNIQUE: 2 views of the right femur were performed FINDINGS: No acute or subacute fracture. Alignment is maintained. Significant degenerative disease is identified within the right tibiofemoral joint space as well as t he right patellofemoral joint space. The right femoral acetabular joint is unremarkable. Soft tissues demonstrate vascular calcifications, without radiopaque foreign body. Age-appropriate mineralization. IMPRESSION: No acute fracture, as detailed above. Reviewed, dictated and finalized at location A.
--- NOTE | ~2025-01-03 | CT_ITS ---
EXAMINATION: CT shoulder RT wo con DATE: 01/04/2025 14:42 INDICATION: Right shoulder pain and inability to raise the arm TECHNIQUE: High resolution computed tomography (CT) of the right shoulder was performed without intra venous contrast. Additional sagittal and coronal reconstructions were performed. Automated exposure c ontrol and iterative reconstruction technique were employed. The dose-length product was 244.62 mGy-c m. COMPARISON: Radiographs dated 01/03/2025 FINDINGS: There is cephalad subluxation of the right humeral head with respect to the glenoid with significant narrowing of the subacromial space which measures [address] and less than 1 mm on the prior radiographs consistent with rotator cuff tear which likely chronic given the moderate fatty atrophy of the supraspinatus tendon and mild fatty atrophy of the subscapularis and infraspinatus muscle combs ies. Moderate right glenohumeral osteoarthritis with anterosuperior predominant nonuniform joint spac e narrowing. Small amount of heterotopic ossification along the posterior superior rim of the glenoid labrum No evident joint effusion. Mild osteoarthritis at the right acromioclavicular joint. Mild dep endent atelectasis in the right lower lobe. Calcified subcarinal lymph node consistent with old granu lomatous disease. No pathologically enlarged right axillary or hilar lymphadenopathy. IMPRESSION: 1. No fracture or other acute osseous abnormality. 2. Moderate right glenohumeral osteoarthritis, likely secondary to chronic rotator cuff arthropathy w ith cephalad subluxation of the humeral head and significant narrowing of the subacromial space consi stent with rotator cuff tear which is likely chronic given the associated rotator cuff muscle fatty a trophy. Reviewed, dictated and finalized at location A. IMPRESSION: 1. No fracture or other acute osseous abnormality. 2. Moderate right glenohumeral osteoarthritis, likely secondary to chronic rota tor cuff arthropathy with cephalad subluxation of the humeral head and signific ant narrowing of the subacromial space consistent with rotator cuff tear which is likely chronic given the associated rotator cuff muscle fatty atrophy.
--- NOTE | ~2025-01-03 | XR_ITS ---
EXAM/ PROCEDURE: XR hip RT 2V w AP pelvis - 01/03/2025 14:55 CDT HISTORY: 89 years old Female with fall COMPARISON: None available TECHNIQUE: Three view(s) FINDINGS/ IMPRESSION: There are no fractures or dislocations.Joint space narrowing, subchondral sclerosis, subchondral cyst formation and osteophyte formation, compatible with moderate osteoarthritis. Reviewed, dictated and finalized at location A.
--- NOTE | ~2025-01-03 | XR_ITS ---
EXAM/ PROCEDURE: XR wrist LT min 3V - 01/03/2025 14:45 CDT HISTORY: 89 years old Female with fall COMPARISON: None available TECHNIQUE: Four view(s) FINDINGS/ IMPRESSION: There are no fractures or dislocations.Joint space narrowing, subchondral sclerosis, subchondral cyst formation and osteophyte formation, compatible with mild osteoarthritis. Reviewed, dictated and finalized at location A.
[2025-01-03 13:15] VITALS: BP 188/74; PULSE 68; RESP 20; TEMP 36.6; O2SAT 95
--- NOTE | 2025-01-03 15:54 | ED.UPPEXIN ---
HPI - Extremity Injury (Upper) General Chief Complaint: Extremity Injury, Upper Stated Complaint: fell today. right shoulder and left hand injury Time Seen by Provider: 01/03/25 14:29 Source: patient and family Limitations: no limitations History of Present Illness HPI narrative: Patient presents after falling backwards earlier today. She states she tripped on her own shoe/foot while walking with caused her to fall. Denies any loss of consciousness/syncope. She is complaining of pain which she describes as her right shoulder right hip/leg, and left hand. Not on anticoagulation. Related Data Home Medications ?Medication ?Instructions ?Recorded ?Confirmed ?Last Taken ?Type aspirin 81 mg tablet,delayed 81 mg PO DAILY 06/29/19 01/03/25 06/30/21 History release cholecalciferol (vitamin D3) 1,250 1,250 mcg PO WEEKLY 01/03/25 01/03/25 01/01/25 History mcg (50,000 unit) capsule Allergies Allergy/AdvReac Type Severity Reaction Status Date / Time ioversol Allergy Unknown Unknown Verified 01/03/25 13:20 Penicillins Allergy Unknown Verified 01/04/25 03:44 Sulfa (Sulfonamide Allergy Hives Verified 01/03/25 13:20 Antibiotics) Contrast Media Allergy Intermediate HIVES Uncoded 01/03/25 13:20 nuclear dye Allergy Unknown Uncoded 01/04/25 03:44 [facility] Past Medical History Medical History CHF (congestive heart failure) Right knee DJD Impairment of balance Knee joint effusion Rheumatoid arthritis Arthritis Postmenopausal Hypertension Surgical History Surgical History No pertinent past surgical history Family History Family History Father Family history of heart disease in male family member before age 55 Patient's father is Family history of cardiovascular disease Sibling Family history of heart disease in male family member before age 55 Patient's sister is Patient's brother is Family history of cardiovascular disease Mother Patient's mother is Acute myocardial infarction Other Cerebrovascular accident Family history of arthritis Heart disease Hypertension Malignant neoplasm Social History Social History Social History: The patient has 5 children. She is a homemaker. Her daughter is the power final armature tester for healthcare. She is and lives home alone. She is a lifelong nonsmoker. She does not use any alcohol marijuana or illicit drugs. Code status full code Smoking status: Never smoker Second hand tobacco smoke exposure: No Alcohol intake: never Substance use: never Substance use type: does not use Do You Feel Safe in your Home?: Yes Lack of Transportation: No Lack of Food: Never True Current Housing: I Have Housing Concerned About Future Housing: No Difficulty Paying Gas/Electric Bills: YES Difficulty Paying for Meds: No Currently Unemployed: No Education: High School Diploma/GED Difficulty w/ Childcare or Family Care: No Living arrangements: with family Occupation/Education: retired Gender identity (if verbalized by the patient): Female Sexual Orientation (if Verbalized by the Patient): Straight or Heterosexual Spiritual care concerns: No Exam Narrative: GENERAL: Well-appearing, well-nourished, and in no acute distress. HEAD: Normocephalic, atraumatic. EYES: Non injected, non icteric ENT: Nares clear, no rhinorrhea or epistaxis. Gross auditory acuity intact. NECK: Supple. No meningismus. CHEST: Speaking in full sentences. No respiratory distress. HEART: Regular rate and rhythm. . ABDOMEN: Soft, nondistended. No rigidity or guarding. Not peritoneal EXTREMITIES: No lower extremity edema. No tenderness to palpation of right shoulder girdle. No obvious bony deformities of right shoulder her proximal arm. No bony deformities or crepitus palpation right thigh Pelvis: Stable to compression. SKIN: Warm, dry. No identifiable abrasion/laceration on scalp. Ecchymosis overlying left wrist and dorsum of left hand. No ecchymosis over right hip or proximal lateral aspect of right leg. No ecchymosis over right shoulder/deltoid/mid to proximal right humerus. NEURO: No focal deficits. Alert and oriented. Answering questions. Following commands. Normal speech without aphasia or dysarthria. PSYCH: Normal mood and affect. Course Vital Signs Vital signs: Vital Signs Temperature 97.8 F 01/03/25 13:15 Pulse Rate 68 01/03/25 13:15 Respiratory Rate 20 01/03/25 13:15 Blood Pressure 188/74 H 01/03/25 13:15 Pulse Oximetry 95 01/03/25 13:15 Oxygen Delivery Room Air 01/03/25 13:15 Temperature 98.1 F 01/04/25 05:31 Pulse Rate 70 01/04/25 08:21 Respiratory Rate 18 01/04/25 05:31 Blood Pressure 177/84 H 01/04/25 05:31 Pulse Oximetry 96 01/04/25 08:17 Oxygen Delivery Room Air 01/04/25 08:20 MDM - Extremity Injury (Upper) MDM Narrative Medical decision making narrative: Patient presents after a mechanical fall in which she tripped. In the emergency department she is afebrile vital signs notable for hypertension. Initial imaging obtained after RN reported areas of injury and I approved images. Patient was complaining of pain at the mid humerus on my physical exam. I did review the images to ensure that this area was captured with her right shoulder x-rays it does appear that this is the case. She is also complaining of mid femur to proximal femur pain and I am not certain all of this was captured on imaging so additional xray ordered. Initial plan was for pain control discharged home. However, Attempted to ambulate with wheeled walker (uses a wheeled walker with seat at home). Slightly unsteady. Family is concerned, both family with her at bedside and family member via phone who is occupational therapy. Patient lives alone at home. They were concerned about her ability to ambulate safely and especially a wheeled walker during this time when she may benefit from either a non-wheeled walker versus short stay in rehab facility. Discussed with care coordination and attempted to initiate discharge to rehab process; submitted but no response yet. Urinalysis with UTI. Previous urine culture showed no growth to date. Will give ceftriaxone. Hyperglycemia without anion gap acidosis. Discussed with Kyra BLACK hospitalist as observation admission for treatment of urinary tract infection, PT/OT evaluation, and possible placement upon discharge. Patient and family in agreement with this plan. Confirmed full code status. Differential Diagnosis Differential diagnosis: Likely sprain and strain of wrist, fracture of wrist, dislocation of shoulder (fracture), fracture of humerus and other (hip/femur fracture; intracranial hemorrhage; C spine fracture) Lab Data Attestation: I reviewed the patient's lab results. 01/04/25 04:52 01/04/25 04:52 Labs: Lab Results 01/03/25 01/03/25 Range/Units 18:08 18:13 WBC 10.0 (4.5-10.0) K/mm3 RBC 4.01 L (4.2-5.4) M/mm3 Hgb 12.4 (12.0-15.0) g/dL Hct 37.3 (37.0-47.0) % MCV 93.0 (80-100) fl MCH 30.9 (26-34) pg MCHC 33.2 (32-36) g/dl RDW 12.2 (11.5-14.5) % Plt Count 239 (150-375) k/mm3 MPV 9.2 (7.4-10.4) fl Immature Gran % (Auto) 0.4 (0-0.5) % Neut % (Auto) 72.7 (45.5-73.1) % Lymph % (Auto) 15.0 L (18.3-44.2) % [place] % (Auto) 10.1 H (2.6-8.5) % Eos % (Auto) 1.2 (0-4.4) % Baso % (Auto) 0.6 (0.2-1.2) % Lymph # (Auto) 1.50 (0.9-3.2) K/mm3 [place] # (Auto) 1.0 H (0.1-0.6) K/mm3 Eos # (Auto) 0.1 (0-0.3) K/mm3 Baso # (Auto) 0.1 (0.0-0.1) K/mm3 Abs Immat Gran (auto) 0.04 H (0.00-0.031) K/mm3 Absolute Neuts (auto) 7.3 H (1.3-6.7) K/mm3 Absolute Nucleated RBC 0.000 (0.0-0.012) K/mm3 Nucleated RBC % 0.0 (0.0-0.2) % Sodium 137 (137-145) mmol/L Potassium 3.5 (3.4-5.0) mmol/L Chloride 101 (98-107) mmol/L Carbon Dioxide 27 (22-30) mmol/L Anion Gap 9 (4-12) mmol/L BUN 10 D (7-17) mg/dL Creatinine 0.75 (0.7-1.0) mg/dL Estim Creat Clear Calc 39 ml/min Estimated GFR > 60 (59 - ) Glucose 145 H (65-110) mg/dL Calcium 9.3 (8.4-10.2) mg/dL Total Bilirubin 0.6 (0.2-1.3) mg/dL AST 28 (14-36) U/L ALT 19 (6-35) U/L Alkaline Phosphatase 60 (38-126) U/L Total Protein 6.5 (6.3-8.2) g/dL Albumin 3.7 (3.5-5.1) g/dL Urine Color Yellow (Yellow) Urine Appearance Clear (Clear) Urine pH 6.5 (5.0-9.0) Ur Specific [place] 1.006 (1.001-1.035) Urine Protein Negative (Negative) mg/dL Urine Glucose (UA) Negative (Negative) mg/dL Urine Ketones Negative (Negative) mg/dL Ur Blood (Man) Trace (Negative) Urine Nitrate Positive H (Negative) Urine Bilirubin Negative (Negative) Urine Urobilinogen 0.2 (<2.0) mg/dL Leukocyte Esterase Rfl 1+ H (Negative) SELVIN/UL Urine RBC 6-10 H (0-2) /hpf Urine WBC 6-10 H (0-3) /hpf Ur Squamous Epith Cells None seen (Few) /hpf Urine Bacteria 4+ H /hpf Urine Casts 0-2 Imaging Data My impression: No fracture dislocation of the shoulder or mid right humerus on my independent interpretation of right shoulder imaging Radiologist's impression: Impressions Head CT 01/03/25 14:52 IMPRESSION: No acute intracranial findings. Cervical Spine CT 01/03/25 15:07 IMPRESSION: 1. Moderate cervical spondylosis. No acute osseous abnormality. Femur X-Ray 01/03/25 17:09 IMPRESSION: No acute fracture, as detailed above. FINDINGS/ IMPRESSION: There are no fractures or dislocations.Joint space narrowing, subchondral sclerosis, subchondral cyst formation and osteophyte formation, compatible with moderate osteoarthritis. FINDINGS/ IMPRESSION: There are no fractures or dislocations.Joint spaces are within normal limits FINDINGS/ IMPRESSION: There are no fractures or dislocations.Joint space narrowing, subchondral sclerosis, subchondral cyst formation and osteophyte formation, compatible with mild osteoarthritis. FINDINGS/ IMPRESSION: There are no fractures or dislocations.Joint spaces are within normal limits Discharge Plan Discharge Clinical Impression: Cervical spondylosis, Osteoarthritis of left wrist, Arm pain, right, Leg pain, right, Hyperglycemia Fall Qualifiers: Encounter type: initial encounter Qualified Code(s): W19.XXXA - Unspecified fall, initial encounter Traumatic ecchymosis of left wrist Qualifiers: Encounter type: initial encounter Qualified Code(s): S60.212A - Contusion of left wrist, initial encounter UTI (urinary tract infection) Qualifiers: Urinary tract infection type: acute cystitis Hematuria presence: without hematuria Qualified Code(s): N30.00 - Acute cystitis without hematuria Patient Disposition: Still a Patient Condition: Stable Time of Disposition: 17:26
[2025-01-03] MEDS: HYDROcodone/acetaminophen (*CRX) 5-325 MG TABLET 1 TAB PO (16:20)
[2025-01-03] MEDS: KETOROLAC 30 MG/ML VIAL (*BKC) 15 MG IM (17:29)
[2025-01-03] MEDS: LIDOCAINE 5% PATCH 1 PATCH TRANSDERM (17:31)
[2025-01-03 18:17] LABS: Add Urine Microscopic? YES; Appearance Urine Clear (Clear); Glucose Urine UA Negative (Negative); Leukocyte Esterase Ur 1+ LEU/UL (Negative); Nitrate Urine Positive (Negative); Non Pathogenic Casts 0-2; Specific Grav Ur 1.006 (1.001-1.035)
--- NOTE | 2025-01-03 18:17 | PCCCNOTE ---
Called to the pt's room for a Care Coordination Consult. Spoke with the pt, daughters and grand daughter via phone who is an Occupational Therapist. Stated the pt lives at home Alone and is generally independent. Stated they are worried about her increased weakness and inability to care for herself. Stated due to her recent fall, bruising and pain they don't think she's in a state to even dress herself right now and are asking for her to be placed for acute rehab at [facility]. Stated she's been there before for short term rehab and really liked it. Spoke with the ED provider and currently waiting for further testing results to finalize. Also faxed clinical to [facility] to initiate the auth process. Family and ED provider aware of the status.-aaron
[2025-01-03 18:18] LABS: Hematocrit 37.3 % (37.0-47.0); Hemoglobin 12.4 g/dL (12.0-15.0); Immature Granulocyte Percent A 0.4 % (0-0.5); Lymphocytes Absolute Auto 1.50 K/mm3 (0.9-3.2); Mean Corpuscular HGB Conc 33.2 g/dl (32-36); Mean Corpuscular Hemoglobin 30.9 pg (26-34); Mean Corpuscular Volume 93.0 fl (80-100); Nucleated Red Blood Cells Absolute Auto 0.000 K/mm3 (0.0-0.012); Nucleated Red Blood Cells Perc 0.0 % (0.0-0.2); Platelet Count Result 239 k/mm3 (150-375); Red Blood Count 4.01 M/mm3 (4.2-5.4); White Blood Count 10.0 K/mm3 (4.5-10.0)
[2025-01-03 18:28] LABS: Alanine Aminotransferase 19 U/L (6-35); Albumin Level 3.7 g/dL (3.5-5.1); Alkaline Phosphatase 60 U/L (38-126); Anion Gap 9 mmol/L (4-12); Aspartate Amino Transferase 28 U/L (14-36); Bilirubin,Total 0.6 mg/dL (0.2-1.3); Blood Urea Nitrogen 10 mg/dL (7-17); Calcium 9.3 mg/dL (8.4-10.2); Carbon Dioxide 27 mmol/L (22-30); Chloride 101 mmol/L (98-107); Estimated CRCL calculation 39 ml/min; Estimated Glomerular Filt Rate > 60; Glucose 145 mg/dL (65-110); Potassium 3.5 mmol/L (3.4-5.0); Sodium 137 mmol/L (137-145); Total Protein 6.5 g/dL (6.3-8.2)
--- NOTE | 2025-01-03 19:12 | P.HP_ITS ---
H&P: HPI History of Present Illness Date/Time: 01/03/25 19:12 Chief Complaint: Fall Narrative: 89 y/o F with PMH of rheumatoid arthritis and hypertension presents here post ground level fall. The patient presents here from home via personal vehicle for further evaluation post ground level fall. She reports she was going to the kitchen to get some chips. She was holding onto her counter top and then she swayed from side to side, felt some dizziness. Next recollection was ending up on the floor. +LOC and head strike. After the fall she is reporting pain to her bilateral arms and right leg. She was able to crawl to the phone to call her family. Upon arrival to the emergency department she was having difficulty raising her right arm due to pain in her right shoulder. She currently lives at home alone and ambulates with walker - was not using it at the time of the fall, was using her furniture and counter for balance. Initial VS at presentation: 97.8? F, HR 68, RR 20, 188/74, and 95% on RA. ED workup showed: No leukocytosis, no anemia, no significant electrolyte derangements, creatinine 0.75 and GFR >60, glucose 145, UA consistent with UTI. Head CT, shoulder XR, C-spine CT, wrist XR, hand XR, hip/pelvic XR, and femur XR negative for traumatic findings, see individual reports for some chronic findings. Review of Systems Review of Systems: All systems reviewed & are unremarkable except as noted in HPI and below PMFSH Past Medical History Medical History CHF (congestive heart failure) Right knee DJD Impairment of balance Knee joint effusion Rheumatoid arthritis Arthritis Postmenopausal Hypertension Surgical History Surgical History No pertinent past surgical history Family History Family History Father Family history of heart disease in male family member before age 55 Patient's father is Family history of cardiovascular disease Sibling Family history of heart disease in male family member before age 55 Patient's sister is Patient's brother is Family history of cardiovascular disease Mother Patient's mother is Acute myocardial infarction Other Cerebrovascular accident Family history of arthritis Heart disease Hypertension Malignant neoplasm Social History Social History Social History: The patient has 5 children. She is a homemaker. Her daughter is the power criminal defense attorney for healthcare. She is and lives home alone. She is a lifelong nonsmoker. She does not use any alcohol marijuana or illicit drugs. Code status full code Smoking status: Never smoker Second hand tobacco smoke exposure: No Alcohol intake: never Substance use: never Substance use type: does not use Lack of Transportation: No Lack of Food: Never True Current Housing: I Have Housing Concerned About Future Housing: No Difficulty Paying Gas/Electric Bills: YES Difficulty Paying for Meds: No Currently Unemployed: No Education: High School Diploma/GED Difficulty w/ Childcare or Family Care: No Living arrangements: with family Occupation/Education: retired Gender identity (if verbalized by the patient): Female Sexual Orientation (if Verbalized by the Patient): Straight or Heterosexual Spiritual care concerns: No Meds Home Medications and Allergies Home Medications ?Medication ?Instructions ?Recorded ?Confirmed ?Type aspirin 81 mg tablet,delayed 81 mg PO DAILY 06/29/19 01/03/25 History release carvedilol 12.5 mg tablet See Rx Instructions .Route 07/13/24 01/03/25 Rx .COMPLEX #180 tabs cholecalciferol (vitamin D3) 1,250 1,250 mcg PO WEEKLY #14 tabs 11/10/24 01/03/25 Rx mcg (50,000 unit) tablet furosemide 20 mg tablet See Rx Instructions .Route 12/21/24 01/03/25 Rx .COMPLEX #90 tabs losartan 50 mg tablet See Rx Instructions .Route 12/21/24 01/03/25 Rx .COMPLEX #180 tabs acetaminophen 500 mg capsule 1,000 mg (2 x 500 mg) PO Q6H PRN 01/03/25 Rx pain #30 caps cholecalciferol (vitamin D3) 1,250 1,250 mcg PO DAILY 01/03/25 01/03/25 History mcg (50,000 unit) capsule ibuprofen 600 mg tablet 600 mg PO TID PRN pain #30 tabs 01/03/25 Rx lidocaine 4 % topical patch 1 patch topical DAILY PRN pain #10 01/03/25 Rx ea Allergies Allergy/AdvReac Type Severity Reaction Status Date / Time ioversol Allergy Unknown Unknown Verified 01/03/25 13:20 Sulfa (Sulfonamide Allergy Hives Verified 01/03/25 13:20 Antibiotics) Contrast Media Allergy Intermediate HIVES Uncoded 01/03/25 13:20 Vital Signs Vital Signs - 24 hr 01/03/25 13:15 Temperature 97.8 F Pulse Rate 68 Respiratory Rate 20 Blood Pressure 188/74 H Pulse Oximetry 95 Oxygen Delivery Room Air Exam Const: General: comfortable and no acute distress Other: , female, elderly, nontoxic appearance HENMT: Face/Nose/Sinus: Normal nares present Mouth: Yes moist mucous membranes Eyes: General: appearance normal, both eyes and all related structures Sclera: sclerae normal Pupils: Equal, round and reactive pupils present EOM: EOMs intact bilaterally Resp: Effort & Inspection: normal respiratory effort Auscultation: clear to auscultation bilaterally Cardio: Rate: regular rate Rhythm: regular rhythm Other: +murmur, S1-S2 present without ectopy. GI: Other: Abdomen soft, nondistended, nontender. Normoactive bowel sounds in all quadrants. Skin: General skin exam: normal color and no rashes or lesions noted Other: Ecchymosis to the left wrist. Neuro: Speech: normal speech Motor exam (neuro): 5/5 motor strength present throughout Sensory Exam: normal sensation Other: A&O x4 Extrem: Other: Trace edema to bilateral lower extremities, left slightly worse than right (chronic for patient) no surrounding erythema or tenderness. Psych: Mental Status: mental status grossly normal Affect: normal affect Other: Good insight and judgment, very pleasant H&P: Results Labs Labs: Short CBC 01/03/25 Range/Units 18:13 WBC 10.0 (4.5-10.0) K/mm3 Hgb 12.4 (12.0-15.0) g/dL Hct 37.3 (37.0-47.0) % Plt Count 239 (150-375) k/mm3 BMP 01/03/25 18:13 Sodium 137 Potassium 3.5 Chloride 101 Carbon Dioxide 27 BUN 10 D Creatinine 0.75 Glucose 145 H Calcium 9.3 Liver Function 01/03/25 Range/Units 18:13 Total Bilirubin 0.6 (0.2-1.3) mg/dL AST 28 (14-36) U/L ALT 19 (6-35) U/L Alkaline Phosphatase 60 (38-126) U/L Albumin 3.7 (3.5-5.1) g/dL Urine 01/03/ Range/Units 18:08 Urine Color Yellow (Yellow) Urine Appearance Clear (Clear) Urine pH 6.5 (5.0-9.0) Ur Specific [place] 1.006 (1.001-1.035) Urine Protein Negative (Negative) mg/dL Urine Glucose (UA) Negative (Negative) mg/dL Assessment and Plan Assessment and plan (1) UTI (urinary tract infection): Qualifiers: Hematuria presence: without hematuria Urinary tract infection type: acute cystitis Qualified Code(s): N30.00 - Acute cystitis without hematuria Code(s): N39.0 - Urinary tract infection, site not specified Status: Acute Assessment and Plan: - UA: Positive nitrates, 1+ leuks, 6-10 RBC/WBC, no epithelial cells, and 4+ bacteria - UC pending - previous micro reviewed - started on Ceftriaxone on 01/03 (2) Fall: Qualifiers: Encounter type: initial encounter Qualified Code(s): W19.XXXA - Unspecified fall, initial encounter Code(s): W19.XXXA - Unspecified fall, initial encounter Status: Acute Assessment and Plan: - trauma workup including a head CT, shoulder XR, C-spine CT, wrist XR, hand XR, hip/pelvic XR, and femur XR negative for acute traumatic findings. See individual reports for some chronic findings. - patient attempted to ambulate in the ED with a walker, at baseline ambulates with a rolling seated walker. Patient unsteady and requesting acute rehab services. - PT/OT/care coordination consulted for acute rehab services and evaluation - fall precautions (3) Hypertension: Qualifiers: Hypertension type: essential hypertension Qualified Code(s): I10 - Essential (primary) hypertension Code(s): I10 - Essential (primary) hypertension Status: Chronic Assessment and Plan: - chronic, currently 188/74 - continue home medications: Losartan, Coreg - monitor Plan Diet: Heart healthy GI Prophylaxis: Not currently indicated DVT Prophylaxis: SCDs IV fluids: None Lines/Tubes: Peripheral IV Code Status: Full code Quality VTE Prophylaxis VTE prophylaxis: mechanical ordered Hospitalist MIPS Advance Care Plan I have confirmed that the patient's Advanced Care Plan is present, code status is documented, or surrogate decision maker is listed in patient medical record.: Yes Medication Reconciliation I have utilized all available resources to obtain, update and review the patients current medications (includes all prescriptions, OTC, herbals, cannabis, and nutritional supplements).: Yes
[2025-01-03 20:34] VITALS: BP 111/66; PULSE 60; RESP 17; O2SAT 95
[2025-01-03 22:29] VITALS: BMI 26.8
--- NOTE | 2025-01-03 22:30 | ADMGEN ---
This patient, Trupti Rincon, was admitted to 2 Medical Room 257-01. Patient/family oriented to hospital policies and general routines including ID bracelet, bed and alarms, visiting hours, pain management, procedures, bathroom and other care routines, personal items, smoking policy, room service/diet, and visiting hours. Information on how to activate the Rapid Response Team has been discussed. Patient/Family are encouraged to report perceived risks to care and to ask questions if they do not understand what they are told or what they should do.
[2025-01-03 22:35] VITALS: BP 144/54; PULSE 70; RESP 18; TEMP 36.6; O2SAT 95
[2025-01-03] MEDS: LOSARTAN POTASSIUM 50 MG TABLET PO (23:23)
[2025-01-03] MEDS: ACETAMINOPHEN 325 MG TABLET 650 MG PO (23:23)
[2025-01-03 23:24] VITALS: PULSE 70
[2025-01-04 05:17] LABS: Hematocrit 39.0 % (37.0-47.0); Hemoglobin 12.9 g/dL (12.0-15.0); Immature Granulocyte Percent A 0.4 % (0-0.5); Lymphocytes Absolute Auto 1.62 K/mm3 (0.9-3.2); Mean Corpuscular HGB Conc 33.1 g/dl (32-36); Mean Corpuscular Hemoglobin 31.3 pg (26-34); Mean Corpuscular Volume 94.7 fl (80-100); Nucleated Red Blood Cells Absolute Auto 0.000 K/mm3 (0.0-0.012); Nucleated Red Blood Cells Perc 0.0 % (0.0-0.2); Platelet Count Result 247 k/mm3 (150-375); Red Blood Count 4.12 M/mm3 (4.2-5.4); White Blood Count 8.5 K/mm3 (4.5-10.0)
[2025-01-04 05:31] VITALS: BP 177/84; PULSE 70; RESP 18; TEMP 36.7; O2SAT 96
[2025-01-04 05:35] LABS: Anion Gap 8 mmol/L (4-12); Blood Urea Nitrogen 13 mg/dL (7-17); Calcium 9.5 mg/dL (8.4-10.2); Carbon Dioxide 28 mmol/L (22-30); Chloride 99 mmol/L (98-107); Estimated CRCL calculation 36 ml/min; Estimated Glomerular Filt Rate > 60; Glucose 105 mg/dL (65-110); Potassium 3.7 mmol/L (3.4-5.0); Sodium 135 mmol/L (137-145)
[2025-01-04 08:17] VITALS: O2SAT 96
[2025-01-04 08:21] VITALS: PULSE 70
[2025-01-04] MEDS: HYDROcodone/acetaminophen (*CRX) 5-325 MG TABLET 1 TAB PO (08:21)
[2025-01-04] MEDS: FUROSEMIDE 20 MG TABLET PO (08:22)
[2025-01-04] MEDS: ASPIRIN 81 MG ENTERIC TABLET PO (08:22)
[2025-01-04] MEDS: CHOLECALCIFEROL (VITAMIN D3) 25 MCG (1,000 UNITS) TABLET PO (08:22)
[2025-01-04] MEDS: LOSARTAN POTASSIUM 50 MG TABLET PO ×2 (08:22→20:31)
[2025-01-04] MEDS: ONDANSETRON INJ 4 MG/2 ML VIAL IV PUSH (10:37)
--- NOTE | 2025-01-04 11:19 | PM.IMPN ---
Progress Note: A&P Assessment and Plan (1) UTI (urinary tract infection): Qualifiers: Hematuria presence: without hematuria Urinary tract infection type: acute cystitis Qualified Code(s): N30.00 - Acute cystitis without hematuria Code(s): N39.0 - Urinary tract infection, site not specified Status: Acute Assessment and Plan: - UA: Positive nitrates, 1+ leuks, 6-10 RBC/WBC, no epithelial cells, and 4+ bacteria - UC pending - previous micro reviewed - started on Ceftriaxone on 01/03 (2) Fall: Qualifiers: Encounter type: initial encounter Qualified Code(s): W19.XXXA - Unspecified fall, initial encounter Code(s): W19.XXXA - Unspecified fall, initial encounter Status: Acute Assessment and Plan: Trauma workup including a head CT, shoulder XR, C-spine CT, wrist XR, hand XR, hip/pelvic XR, and femur XR negative for acute traumatic findings. See individual reports for some chronic findings. 01/04 CT right shoulder today shows: 1. No fracture or other acute osseous abnormality. 2. Moderate right glenohumeral osteoarthritis, likely secondary to chronic rotator cuff arthropathy with cephalad subluxation of the humeral head and significant narrowing of the subacromial space consistent with rotator cuff tear which is likely chronic given the associated rotator cuff muscle fatty atrophy. Patient attempted to ambulate in the ED with a walker, at baseline ambulates with a rolling seated walker. Patient unsteady and requesting acute rehab services. - PT/OT/care coordination consulted for acute rehab services and evaluation - fall precautions (3) Hypertension: Qualifiers: Hypertension type: essential hypertension Qualified Code(s): I10 - Essential (primary) hypertension Code(s): I10 - Essential (primary) hypertension Status: Chronic Assessment and Plan: Home meds: Losartan, Coreg -blood pressure above goal in the setting of pain, 162/59 -pain control --continue meds and follow Plan 89 y/o F with PMH of rheumatoid arthritis and hypertension presents here post ground level fall. The patient presents here from home via personal vehicle for further evaluation post ground level fall. She reports she was going to the kitchen to get some chips. She was holding onto her counter top and then she swayed from side to side, felt some dizziness. Next recollection was ending up on the floor. +LOC and head strike. After the fall she is reporting pain to her bilateral arms and right leg. She was able to crawl to the phone to call her family. Upon arrival to the emergency department she was having difficulty raising her right arm due to pain in her right shoulder. She currently lives at home alone and ambulates with walker - was not using it at the time of the fall, was using her furniture and counter for balance. Initial VS at presentation: 97.8? F, HR 68, RR 20, 188/74, and 95% on RA. ED workup showed: No leukocytosis, no anemia, no significant electrolyte derangements, creatinine 0.75 and GFR >60, glucose 145, UA consistent with UTI. Head CT, shoulder XR, C-spine CT, wrist XR, hand XR, hip/pelvic XR, and femur XR negative for traumatic findings, see individual reports for some chronic findings. Diet: Heart healthy GI Prophylaxis: Not currently indicated DVT Prophylaxis: SCDs IV fluids: None Lines/Tubes: Peripheral IV Code Status: Full code Time Spent With Patient Time: 48 minutes Subjective Date/time seen: 01/04/25 11:19 Interval history: Right shoulder pain, unable to raise arm actively and pain with passive arm raise. CT shoulder She reports no shortness of breath, chest pain, palpitations, or lightheadedness prior to fall. Remembers hitting the ground with no loss of consciousness. Sounds mechanical possibly tripped Having pain but otherwise no complaints Review of Systems Review of Systems: All systems reviewed & are unremarkable except as noted in HPI and below Exam Narrative: General - Awake and alert. No acute distress Eyes - PERRLA, EOM intact ENT - No thrush, No erythema Neck - No noticeable or palpable swelling Lymph Nodes - No lymphadenopathy Cardiovascular - RRR no m/r/g, no JVD Lungs: Clear to auscultation, No wheezing, use of accessory muscles, no crackles Skin - Skin warm and dry, no wounds or rashes Abdomen - Normal bowel sounds, abdomen soft and nontender Extremities - Right knee mildly TTP, Right shoulder TTP Musculoskeletal - 5/5 strength, normal range of motion, no swollen or erythematous joints. Neurological ? Alert and oriented x 2, CN 2-12 grossly intact. Psych: Normal mood and affect Objective Data Vital Signs Vital Signs: Vital Signs - 24 hr 01/03/25 13:15 01/03/25 20:34 01/03/25 22:35 Temperature 97.8 F 98 F Pulse Rate 68 60 70 Respiratory Rate 20 17 18 Blood Pressure 188/74 H 111/66 144/54 H Pulse Oximetry 95 95 95 Oxygen Delivery Room Air 01/03/25 23:24 01/03/25 23:30 01/04/25 05:31 Temperature 98.1 F Pulse Rate 70 70 Respiratory Rate 18 Blood Pressure 177/84 H Pulse Oximetry 96 Oxygen Delivery Room Air 01/04/25 08:17 01/04/25 08:20 01/04/25 08:21 Temperature Pulse Rate 70 Respiratory Rate Blood Pressure Pulse Oximetry 96 Oxygen Delivery Room Air Room Air Intake/Output Intake/Output: Intake & Output 01/01/25 01/02/25 01/03/25 01/04/25 23:59 23:59 23:59 23:59 Intake Total 50 520 Output Total 1800 Balance 50 -1280 Meds/Results Medications: Active Medications Generic Name Dose Route Start Last Admin Trade Name Freq PRN Reason Stop Dose Admin Acetaminophen 650 mg 01/03/25 18:55 01/03/25 23:23 Acetaminophen 325 Mg Tablet PO 650 mg Q4H PRN Administration Mild Pain (1-3) or Fever Hydrocodone Bitart/Acetaminophen 1 tab 01/03/25 19:36 01/04/25 08:21 Hydrocodone/Acetaminophen (*Crx) 5-325 Mg Tablet PO 1 tab Q6H PRN Administration Pain Rated 4-6 Aspirin 81 mg 01/04/25 09:00 01/04/25 08:22 Aspirin 81 Mg Enteric Tablet PO 81 mg DAILY DELMER Administration Carvedilol 12.5 mg 01/03/25 22:10 01/04/25 08:21 Carvedilol 12.5 Mg Tablet PO 12.5 mg Q12HR DELMER Administration Furosemide 20 mg 01/04/25 09:00 01/04/25 08:22 Furosemide 20 Mg Tablet PO 20 mg DAILY DELMER Administration Ceftriaxone Sodium 1 gm in 50 mls @ 100 mls/hr 01/04/25 18:30 Rocephin 1 Gm/Ns 50 Ml IVPB Q24H DELMER Losartan Potassium 50 mg 01/03/25 22:10 01/04/25 08:22 Losartan Potassium 50 Mg Tablet PO 50 mg Q12HR DELMER Administration Morphine Sulfate 2 mg 01/03/25 19:36 Morphine Sulfate (*Crx) 2 Mg/Ml Inj IV PUSH Q4H PRN Pain Rated 7-10 Ondansetron HCl 4 mg 01/03/25 18:55 01/04/25 10:37 Ondansetron Inj 4 Mg/2 Ml Vial IV PUSH 4 mg Q4H PRN Administration Nausea Senna/Docusate Sodium 1 tab 01/03/25 19:36 Senna/Docusate Sodium Tablet PO HS PRN Constipation Vitamin D 25 mcg 01/04/25 09:00 01/04/25 08:22 Cholecalciferol (Vitamin D3) 25 Mcg (1,000 Units) Tablet PO 25 mcg DAILY DELMER Administration Radiology Results: ITS Impressions Head CT 01/03/25 14:52 IMPRESSION: No acute intracranial findings. Cervical Spine CT 01/03/25 15:07 IMPRESSION: 1. Moderate cervical spondylosis. No acute osseous abnormality. Femur X-Ray 01/03/25 17:09 IMPRESSION: No acute fracture, as detailed above. Labs Labs: Laboratory Results - last 24 hr 01/03/25 01/03/25 01/04/25 18:08 18:13 04:52 WBC 10.0 8.5 RBC 4.01 L 4.12 L Hgb 12.4 12.9 Hct 37.3 39.0 MCV 93.0 94.7 MCH 30.9 31.3 MCHC 33.2 33.1 RDW 12.2 12.2 Plt Count 239 247 MPV 9.2 9.7 Immature Gran % (Auto) 0.4 0.4 Neut % (Auto) 72.7 64.0 Lymph % (Auto) 15.0 L 19.2 [place] % (Auto) 10.1 H 13.6 H Eos % (Auto) 1.2 2.2 Baso % (Auto) 0.6 0.6 Lymph # (Auto) 1.50 1.62 [place] # (Auto) 1.0 H 1.2 H Eos # (Auto) 0.1 0.2 Baso # (Auto) 0.1 0.1 Abs Immat Gran (auto) 0.04 H 0.03 Absolute Neuts (auto) 7.3 H 5.4 Absolute Nucleated RBC 0.000 0.000 Nucleated RBC % 0.0 0.0 Sodium 137 135 L Potassium 3.5 3.7 Chloride 101 99 Carbon Dioxide 27 28 Anion Gap 9 8 BUN 10 D 13 Creatinine 0.75 0.84 Estim Creat Clear Calc 39 36 Estimated GFR > 60 > 60 Glucose 145 H 105 Calcium 9.3 9.5 Total Bilirubin 0.6 AST 28 ALT 19 Alkaline Phosphatase 60 Total Protein 6.5 Albumin 3.7 Urine Color Yellow Urine Appearance Clear Urine pH 6.5 Ur Specific [place] 1.006 Urine Protein Negative Urine Glucose (UA) Negative Urine Ketones Negative Ur Blood (Man) Trace Urine Nitrate Positive H Urine Bilirubin Negative Urine Urobilinogen 0.2 Leukocyte Esterase Rfl 1+ H Urine RBC 6-10 H Urine WBC 6-10 H Ur Squamous Epith Cells None seen Urine Bacteria 4+ H Urine Casts 0-2 Quality VTE Prophylaxis VTE prophylaxis: mechanical ordered Hospitalist [facility] Advance Care Plan I have confirmed that the patient's Advanced Care Plan is present, code status is documented, or surrogate decision maker is listed in patient medical record.: Yes Medication Reconciliation I have utilized all available resources to obtain, update and review the patients current medications (includes all prescriptions, OTC, herbals, cannabis, and nutritional supplements).: Yes
[2025-01-04 13:38] VITALS: BP 162/59; PULSE 58; RESP 16; TEMP 36.6; O2SAT 93
[2025-01-04 19:55] VITALS: BP 158/64; PULSE 63; RESP 18; TEMP 36.6; O2SAT 94
[2025-01-04 20:32] VITALS: PULSE 64
[2025-01-04] MEDS: ACETAMINOPHEN 325 MG TABLET 650 MG PO (20:35)
--- NOTE | 2025-01-04 21:58 | PM.EVENT ---
Event Note Event Note Event Note: Received a call from the RN that she received notification that they were told by lab that pt's urine is so far positive for gram-negative bacilli. Patient is on Rocephin. Awaiting culture final report and sensitivity. Rocephin continued.
[2025-01-05 05:00] VITALS: BP 153/69; PULSE 73; RESP 18; TEMP 36.2; O2SAT 93
--- NOTE | 2025-01-05 07:57 | P.PNIM_ITS ---
Progress Note: A&P Assessment and Plan (1) UTI (urinary tract infection): Qualifiers: Hematuria presence: without hematuria Urinary tract infection type: acute cystitis Qualified Code(s): N30.00 - Acute cystitis without hematuria Code(s): N39.0 - Urinary tract infection, site not specified Status: Acute Assessment and Plan: - UA: Positive nitrates, 1+ leuks, 6-10 RBC/WBC, no epithelial cells, and 4+ bacteria. GS with >100,000 GNB - UC pending - previous micro reviewed - started on Ceftriaxone on 01/03 (2) Fall: Qualifiers: Encounter type: initial encounter Qualified Code(s): W19.XXXA - Unspecified fall, initial encounter Code(s): W19.XXXA - Unspecified fall, initial encounter Status: Acute Assessment and Plan: Trauma workup including a head CT, shoulder XR, C-spine CT, wrist XR, hand XR, hip/pelvic XR, and femur XR negative for acute traumatic findings. See individual reports for some chronic findings. 01/04 CT right shoulder 01/05 shows: 1. No fracture or other acute osseous abnormality. 2. Moderate right glenohumeral osteoarthritis, likely secondary to chronic rotator cuff arthropathy with cephalad subluxation of the humeral head and significant narrowing of the subacromial space consistent with rotator cuff tear which is likely chronic given the associated rotator cuff muscle fatty atrophy. --Patient attempted to ambulate in the ED with a walker, at baseline ambulates with a rolling seated walker. Patient unsteady and requesting acute rehab services. Pending placement --Image findings noted above. Patient and family both report the acute pain and decrease in mobility is new so there is an acute on chronic process. Possible new rotator cuff tear --Though she is not currently interested in surgery, discussed referred to orthopedics after physical therapy. Also discussed that trauma is often an reason to have surgery and she seemed - PT/OT/care coordination consulted for acute rehab services and evaluation - fall precautions (3) Hypertension: Qualifiers: Hypertension type: essential hypertension Qualified Code(s): I10 - Essential (primary) hypertension Code(s): I10 - Essential (primary) hypertension Status: Chronic Assessment and Plan: Home meds: Losartan, Coreg -blood pressure above goal in the setting of pain, 162/59 -pain control --continue meds and follow Plan 89 y/o F with PMH of rheumatoid arthritis and hypertension presents here post ground level fall. The patient presents here from home via personal vehicle for further evaluation post ground level fall. She reports she was going to the kitchen to get some chips. She was holding onto her counter top and then she swayed from side to side, felt some dizziness. Next recollection was ending up on the floor. +LOC and head strike. After the fall she is reporting pain to her bilateral arms and right leg. She was able to crawl to the phone to call her family. Upon arrival to the emergency department she was having difficulty raising her right arm due to pain in her right shoulder. She currently lives at home alone and ambulates with walker - was not using it at the time of the fall, was using her furniture and counter for balance. Initial VS at presentation: 97.8? F, HR 68, RR 20, 188/74, and 95% on RA. ED workup showed: No leukocytosis, no anemia, no significant electrolyte derangements, creatinine 0.75 and GFR >60, glucose 145, UA consistent with UTI. Head CT, shoulder XR, C-spine CT, wrist XR, hand XR, hip/pelvic XR, and femur XR negative for traumatic findings, see individual reports for some chronic findings. Diet: Heart healthy GI Prophylaxis: Not currently indicated DVT Prophylaxis: SCDs, add lovenox IV fluids: None Lines/Tubes: Peripheral IV Code Status: Full code Time Spent With Patient Time: 57 minutes Subjective Date/time seen: 01/05/25 10:45 Interval history: Right shoulder pain, unable to raise arm actively and pain with passive arm raise. CT shoulder showed chronic rotator cuff tear Having pain but otherwise no complaints. Pending placement Review of Systems Review of Systems: All systems reviewed & are unremarkable except as noted in HPI and below Exam Narrative: General - Awake and alert. No acute distress Eyes - PERRLA, EOM intact ENT - No thrush, No erythema Neck - No noticeable or palpable swelling Lymph Nodes - No lymphadenopathy Cardiovascular - RRR no m/r/g, no JVD Lungs: Clear to auscultation, No wheezing, use of accessory muscles, no crackles Skin - Skin warm and dry, no wounds or rashes Abdomen - Normal bowel sounds, abdomen soft and nontender Extremities - Right knee mildly TTP, Right shoulder TTP Musculoskeletal - 5/5 strength, normal range of motion, no swollen or erythemat ous joints. Neurological ? Alert and oriented x 2, CN 2-12 grossly intact. Psych: Normal mood and affect Objective Data Vital Signs Vital Signs: Vital Signs - 24 hr 01/04/25 08:17 01/04/25 08:20 01/04/25 08:21 Temperature Pulse Rate 70 Respiratory Rate Blood Pressure Pulse Oximetry 96 Oxygen Delivery Room Air Room Air 01/04/25 13:38 01/04/25 15:15 01/04/25 15:44 Temperature 98 F Pulse Rate 58 L Respiratory Rate 16 Blood Pressure 162/59 H Pulse Oximetry 93 Oxygen Delivery Room Air Room Air 01/04/25 19:55 01/04/25 20:32 01/05/25 05:00 Temperature 97.8 F 97.1 F L Pulse Rate 63 64 73 Respiratory Rate 18 18 Blood Pressure 158/64 H 153/69 H Pulse Oximetry 94 93 Oxygen Delivery Intake/Output Intake/Output: Intake & Output 01/02/25 01/03/25 01/04/25 01/05/25 23:59 23:59 23:59 23:59 Intake Total 50 1050 450 Output Total 1800 700 Balance 50 -750 -250 Meds/Results Medications: Active Medications Generic Name Dose Route Start Last Admin Trade Name Freq PRN Reason Stop Dose Admin Acetaminophen 650 mg 01/03/25 18:55 01/04/25 20:35 Acetaminophen 325 Mg Tablet PO 650 mg Q4H PRN Administration Mild Pain (1-3) or Fever Hydrocodone Bitart/Acetaminophen 1 tab 01/03/25 19:36 01/04/25 08:21 Hydrocodone/Acetaminophen (*Crx) 5-325 Mg Tablet PO 1 tab Q6H PRN Administration Pain Rated 4-6 Aspirin 81 mg 01/04/25 09:00 01/04/25 08:22 Aspirin 81 Mg Enteric Tablet PO 81 mg DAILY DELMER Administration Carvedilol 12.5 mg 01/03/25 22:10 01/04/25 20:32 Carvedilol 12.5 Mg Tablet PO 12.5 mg Q12HR DELMER Administration Furosemide 20 mg 01/04/25 09:00 01/04/25 08:22 Furosemide 20 Mg Tablet PO 20 mg DAILY DELMER Administration Ceftriaxone Sodium 1 gm in 50 mls @ 100 mls/hr 01/04/25 18:30 01/04/25 18:10 Rocephin 1 Gm/Ns 50 Ml IVPB Infused Q24H DELMER Infusion Losartan Potassium 50 mg 01/03/25 22:10 01/04/25 20:31 Losartan Potassium 50 Mg Tablet PO 50 mg Q12HR DELMER Administration Morphine Sulfate 2 mg 01/03/25 19:36 Morphine Sulfate (*Crx) 2 Mg/Ml Inj IV PUSH Q4H PRN Pain Rated 7-10 Ondansetron HCl 4 mg 01/03/25 18:55 01/04/25 10:37 Ondansetron Inj 4 Mg/2 Ml Vial IV PUSH 4 mg Q4H PRN Administration Nausea Senna/Docusate Sodium 1 tab 01/03/25 19:36 Senna/Docusate Sodium Tablet PO HS PRN Constipation Vitamin D 25 mcg 01/04/25 09:00 01/04/25 08:22 Cholecalciferol (Vitamin D3) 25 Mcg (1,000 Units) Tablet PO 25 mcg DAILY DELMER Administration Radiology Results: ITS Impressions Head CT 01/03/25 14:52 IMPRESSION: No acute intracranial findings. Cervical Spine CT 01/03/25 15:07 IMPRESSION: 1. Moderate cervical spondylosis. No acute osseous abnormality. Femur X-Ray 01/03/25 17:09 IMPRESSION: No acute fracture, as detailed above. Shoulder CT 01/04/25 16:37 IMPRESSION: 1. No fracture or other acute osseous abnormality. 2. Moderate right glenohumeral osteoarthritis, likely secondary to chronic rotator cuff arthropathy with cephalad subluxation of the humeral head and significant narrowing of the subacromial space consistent with rotator cuff tear which is likely chronic given the associated rotator cuff muscle fatty atrophy. Quality VTE Prophylaxis VTE prophylaxis: mechanical ordered and pharmacologic ordered Hospitalist [facility] Advance Care Plan I have confirmed that the patient's Advanced Care Plan is present, code status is documented, or surrogate decision maker is listed in patient medical record.: Yes Medication Reconciliation I have utilized all available resources to obtain, update and review the patients current medications (includes all prescriptions, OTC, herbals, cannabis, and nutritional supplements).: Yes
[2025-01-05 08:50] VITALS: PULSE 73
[2025-01-05] MEDS: ASPIRIN 81 MG ENTERIC TABLET PO (08:50)
[2025-01-05] MEDS: CHOLECALCIFEROL (VITAMIN D3) 25 MCG (1,000 UNITS) TABLET PO (08:50)
[2025-01-05] MEDS: LOSARTAN POTASSIUM 50 MG TABLET PO ×2 (08:51→20:20)
[2025-01-05] MEDS: ACETAMINOPHEN 325 MG TABLET 650 MG PO ×2 (08:51→20:18)
[2025-01-05] MEDS: FUROSEMIDE 20 MG TABLET PO (08:51)
[2025-01-05 14:00] VITALS: BP 123/48; PULSE 71; RESP 18; TEMP 35.9; O2SAT 95
--- NOTE | 2025-01-05 20:04 | PC.NURSE ---
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
[2025-01-05 20:06] VITALS: BP 150/59; PULSE 72; RESP 16; TEMP 37; O2SAT 96
[2025-01-05 20:20] VITALS: PULSE 62
[2025-01-06] VITALS (7 sets, daily range): BP systolic 150–175; BP diastolic 65–72; PULSE 63–72; RESP 12–16; TEMP 36.3–36.8; O2SAT 93–96
[2025-01-06] MEDS: ASPIRIN 81 MG ENTERIC TABLET PO (08:36)
[2025-01-06] MEDS: CHOLECALCIFEROL (VITAMIN D3) 25 MCG (1,000 UNITS) TABLET PO (08:36)
[2025-01-06] MEDS: FUROSEMIDE 20 MG TABLET PO (08:36)
[2025-01-06] MEDS: ACETAMINOPHEN 325 MG TABLET 650 MG PO (08:37)
[2025-01-06] MEDS: ENOXAPARIN 30 MG/0.3 ML SYRINGE SUB-Q (08:38)
[2025-01-06] MEDS: LOSARTAN POTASSIUM 50 MG TABLET PO ×2 (08:38→22:13)
--- NOTE | 2025-01-06 09:08 | P.PNIM_ITS ---
Progress Note: A&P Assessment and Plan (1) UTI (urinary tract infection): Qualifiers: Hematuria presence: without hematuria Urinary tract infection type: acute cystitis Qualified Code(s): N30.00 - Acute cystitis without hematuria Code(s): N39.0 - Urinary tract infection, site not specified Status: Acute Assessment and Plan: - UA: Positive nitrates, 1+ leuks, 6-10 RBC/WBC, no epithelial cells, and 4+ bacteria. GS with >100,000 GNB - UC pending - previous micro reviewed - started on Ceftriaxone on 01/03, continue to 01/06 (2) Fall: Qualifiers: Encounter type: initial encounter Qualified Code(s): W19.XXXA - Unspecified fall, initial encounter Code(s): W19.XXXA - Unspecified fall, initial encounter Status: Acute Assessment and Plan: Trauma workup including a head CT, shoulder XR, C-spine CT, wrist XR, hand XR, hip/pelvic XR, and femur XR negative for acute traumatic findings. See individual reports for some chronic findings. 01/04 CT right shoulder 01/05 shows: 1. No fracture or other acute osseous abnormality. 2. Moderate right glenohumeral osteoarthritis, likely secondary to chronic rotator cuff arthropathy with cephalad subluxation of the humeral head and significant narrowing of the subacromial space consistent with rotator cuff tear which is likely chronic given the associated rotator cuff muscle fatty atrophy. --Patient attempted to ambulate in the ED with a walker, at baseline ambulates with a rolling seated walker. Patient unsteady and requested acute rehab services. Pending placement --Image findings noted above. Patient and family both report the acute pain and decrease in mobility is new so there is an acute on chronic process. Possible new rotator cuff tear. Mobility is improving in the last 2 days but --Though she is not currently interested in surgery, discussed referred to orthopedics after physical therapy. Also discussed that trauma is often an reason to have surgery and she seemed - PT/OT/care coordination consulted for acute rehab services and evaluation - fall precautions (3) Hypertension: Qualifiers: Hypertension type: essential hypertension Qualified Code(s): I10 - Essential (primary) hypertension Code(s): I10 - Essential (primary) hypertension Status: Chronic Assessment and Plan: Home meds: Losartan, Coreg -blood pressure above goal in the setting of pain, 162/59 -pain control, taking tylenol, increase to 1000mg q6 prn --continue losartan 50 BID and coreg 12.5mg BID Plan 89 y/o F with PMH of rheumatoid arthritis and hypertension presents here post ground level fall. The patient presents here from home via personal vehicle for further evaluation post ground level fall. She reports she was going to the kitchen to get some chips. She was holding onto her counter top and then she swayed from side to side, felt some dizziness. Next recollection was ending up on the floor. +LOC a nd head strike. After the fall she is reporting pain to her bilateral arms and right leg. She was able to crawl to the phone to call her family. Upon arrival to the emergency department she was having difficulty raising her right arm due to pain in her right shoulder. She currently lives at home alone and ambulates with walker - was not using it at the time of the fall, was using her furniture and counter for balance. Initial VS at presentation: 97.8? F, HR 68, RR 20, 188/74, and 95% on RA. ED workup showed: No leukocytosis, no anemia, no significant electrolyte derangements, creatinine 0.75 and GFR >60, glucose 145, UA consistent with UTI. Head CT, shoulder XR, C-spine CT, wrist XR, hand XR, hip/pelvic XR, and femur XR negative for traumatic findings, see individual reports for some chronic findings. Diet: Heart healthy GI Prophylaxis: Not currently indicated DVT Prophylaxis: SCDs, add lovenox IV fluids: None Lines/Tubes: Peripheral IV Code Status: Full code Time Spent With Patient Time: 55 minutes Subjective Date/time seen: 01/06/25 10:20 Interval history: No overnight events. Mobility to right shoulder improving. Mobility limited. Unable to shrug right shoulder due to weakness and pain. CT shoulder showed chronic rotator cuff tear Having pain but otherwise no complaints. Review of Systems Review of Systems: All systems reviewed & are unremarkable except as noted in HPI and below Exam Narrative: General - Awake and alert. No acute distress Eyes - PERRLA, EOM intact ENT - No thrush, No erythema Neck - No noticeable or palpable swelling Lymph Nodes - No lymphadenopathy Cardiovascular - RRR no m/r/g, no JVD Lungs: Clear to auscultation, No wheezing, use of accessory muscles, no crackles Skin - Skin warm and dry, no wounds or rashes Abdomen - Normal bowel sounds, abdomen soft and nontender Extremities - Right knee mildly TTP, Right shoulder TTP, Musculoskeletal - 4/5 strength, unable to shrug right shoulder, chronically enlarged knee joints Neurological ? Alert and oriented x 2, CN 2-12 grossly intact. Psych: Normal mood and affect Objective Data Vital Signs Vital Signs: Vital Signs - 24 hr 01/05/25 14:00 01/05/25 20:06 01/05/25 20:20 Temperature 96.7 F L 98.6 F Pulse Rate 71 72 62 Respiratory Rate 18 16 Blood Pressure 123/48 L 150/59 H Pulse Oximetry 95 96 01/06/25 05:08 01/06/25 08:37 Temperature 97.3 F L Pulse Rate 72 72 Respiratory Rate 16 Blood Pressure 175/72 H Pulse Oximetry 93 Intake/Output Intake/Output: Intake & Output 01/03/25 01/04/25 01/05/25 01/06/25 23:59 23:59 23:59 23:59 Intake Total 50 1050 1920 300 Output Total 1800 1100 500 Balance 50 -750 820 -200 Meds/Results Medications: Active Medications Generic Name Dose Route Start Last Admin Trade Name Freq PRN Reason Stop Dose Admin Acetaminophen 650 mg 01/03/25 18:55 01/06/25 08:37 Acetaminophen 325 Mg Tablet PO 650 mg Q4H PRN Administration Mild Pain (1-3) or Fever Hydrocodone Bitart/Acetaminophen 1 tab 01/03/25 19:36 01/04/25 08:21 Hydrocodone/Acetaminophen (*Crx) 5-325 Mg Tablet PO 1 tab Q6H PRN Administration Pain Rated 4-6 Aspirin 81 mg 01/04/25 09:00 01/06/25 08:36 Aspirin 81 Mg Enteric Tablet PO 81 mg DAILY DELMER Administration Carvedilol 12.5 mg 01/03/25 22:10 01/06/25 08:37 Carvedilol 12.5 Mg Tablet PO 12.5 mg Q12HR DELMER Administration Enoxaparin Sodium 30 mg 01/06/25 09:00 01/06/25 08:38 Enoxaparin 30 Mg/0.3 Ml Syringe SUB-Q 30 mg DAILY DELMER Administration Furosemide 20 mg 01/04/25 09:00 01/06/25 08:36 Furosemide 20 Mg Tablet PO 20 mg DAILY DELMER Administration Ceftriaxone Sodium 1 gm in 50 mls @ 100 mls/hr 01/04/25 18:30 01/05/25 18:26 Rocephin 1 Gm/Ns 50 Ml IVPB 100 mls/hr Q24H DELMER Administration Losartan Potassium 50 mg 01/03/25 22:10 01/06/25 08:38 Losartan Potassium 50 Mg Tablet PO 50 mg Q12HR DELMER Administration Morphine Sulfate 2 mg 01/03/25 19:36 Morphine Sulfate (*Crx) 2 Mg/Ml Inj IV PUSH Q4H PRN Pain Rated 7-10 Ondansetron HCl 4 mg 01/03/25 18:55 01/04/25 10:37 Ondansetron Inj 4 Mg/2 Ml Vial IV PUSH 4 mg Q4H PRN Administration Nausea Senna/Docusate Sodium 1 tab 01/03/25 19:36 Senna/Docusate Sodium Tablet PO HS PRN Constipation Vitamin D 25 mcg 01/04/25 09:00 01/06/25 08:36 Cholecalciferol (Vitamin D3) 25 Mcg (1,000 Units) Tablet PO 25 mcg DAILY DELMER Administration Radiology Results: ITS Impressions Head CT 01/03/25 14:52 IMPRESSION: No acute intracranial findings. Cervical Spine CT 01/03/25 15:07 IMPRESSION: 1. Moderate cervical spondylosis. No acute osseous abnormality. Femur X-Ray 01/03/25 17:09 IMPRESSION: No acute fracture, as detailed above. Shoulder CT 01/04/25 16:37 IMPRESSION: 1. No fracture or other acute osseous abnormality. 2. Moderate right glenohumeral osteoarthritis, likely secondary to chronic rotator cuff arthropathy with cephalad subluxation of the humeral head and significant narrowing of the subacromial space consistent with rotator cuff tear which is likely chronic given the associated rotator cuff muscle fatty atrophy. Quality VTE Prophylaxis VTE prophylaxis: mechanical ordered and pharmacologic ordered Hospitalist MIPS Advance Care Plan I have confirmed that the patient's Advanced Care Plan is present, code status is documented, or surrogate decision maker is listed in patient medical record.: Yes Medication Reconciliation I have utilized all available resources to obtain, update and review the patients current medications (includes all prescriptions, OTC, herbals, cannabis, and nutritional supplements).: Yes
[2025-01-06] MEDS: HYDROcodone/acetaminophen (*CRX) 5-325 MG TABLET 1 TAB PO (22:12)
[2025-01-07 05:03] VITALS: BP 151/76; PULSE 68; RESP 12; TEMP 36.2; O2SAT 94
--- NOTE | 2025-01-07 08:14 | P.PNIM_ITS ---
Progress Note: A&P Assessment and Plan (1) UTI (urinary tract infection): Qualifiers: Hematuria presence: without hematuria Urinary tract infection type: acute cystitis Qualified Code(s): N30.00 - Acute cystitis without hematuria Code(s): N39.0 - Urinary tract infection, site not specified Status: Acute Assessment and Plan: RESOLVED Denies symptoms. Suspect contaminant but urine culture grew e coli so completed 3 days of Ceftriaxone, 01/03-01/06 - UA: Positive nitrates, 1+ leuks, 6-10 RBC/WBC, no epithelial cells, and 4+ bacteria. GS with >100,000 GNB - UC pending - previous micro reviewed (2) Fall: Qualifiers: Encounter type: initial encounter Qualified Code(s): W19.XXXA - Unspecified fall, initial encounter Code(s): W19.XXXA - Unspecified fall, initial encounter Status: Acute Assessment and Plan: Fall Rotator Cuff Tear Trauma workup including a head CT, shoulder XR, C-spine CT, wrist XR, hand XR, hip/pelvic XR, and femur XR negative for acute traumatic findings. See indivi dual reports for some chronic findings. 01/04 CT right shoulder 01/05 shows: 1. No fracture or other acute osseous abnormality. 2. Moderate right glenohumeral osteoarthritis, likely secondary to chronic rotator cuff arthropathy with cephalad subluxation of the humeral head and significant narrowing of the subacromial space consistent with rotator cuff tear which is likely chronic given the associated rotator cuff muscle fatty atrophy. --Patient attempted to ambulate in the ED with a walker, at baseline ambulates with a rolling seated walker. Patient unsteady and requested acute rehab services. Pending placement --Image findings noted above. Patient and family both report the acute pain and decrease in mobility is new so there is an acute on chronic process. Possible new rotator cuff tear. Mobility is improving in the last 2 days but --Though she is not currently interested in surgery, discussed referred to orthopedics after physical therapy. Also discussed that trauma is often a reason to have surgery for a rotator cuff tear but she is not interested in surgery at this time. Also discussed with family and they support that decision. Planning PT. Referral to orthopedic surgery if she reconsiders. - PT/OT/care coordination consulted for acute rehab services and evaluation, recommending SNF. Discharge pending placement - fall precautions (3) Hypertension: Qualifiers: Hypertension type: essential hypertension Qualified Code(s): I10 - Essential (primary) hypertension Code(s): I10 - Essential (primary) hypertension Status: Chronic Assessment and Plan: Home meds: Losartan, Coreg -blood pressure above goal in the setting of pain, 162/59. Goal <160 since over 80 -pain control, taking tylenol, increased to 1000mg q6 prn --continue losartan 50 BID and coreg 12.5mg BID. --Start amlodipine 2.5mg daily (4) Rotator cuff injury: Code(s): S46.009A - Unspecified injury of muscle(s) and tendon(s) of the rotator cuff of unspecified shoulder, initial encounter Status: Acute Plan 89 y/o F with PMH of rheumatoid arthritis and hypertension presents here post ground level fall. The patient presents here from home via personal vehicle for further evaluation post ground level fall. She reports she was going to the kitchen to get some chips. She was holding onto her counter top and then she swayed from side to side, felt some dizziness. Next recollection was ending up on the floor. +LOC and head strike. After the fall she is reporting pain to her bilateral arms and right leg. She was able to crawl to the phone to call her family. Upon arrival to the emergency department she was having difficulty raising her right arm due to pain in her right shoulder. She currently lives at home alone and ambulates with walker - was not using it at the time of the fall, was using her furniture and counter for balance. She was found to have a rotator cuff tear and subluxation but is not interested in surgery at this time. Discharging to SNF for rehab. Also treated with 3 doses of Ceftriaxone for an ecoli UTI but patient was asymptomatic so also possible contaminent. Blood pressure elevated, started norvasc 2.5 daily Diet: Heart healthy GI Prophylaxis: Not currently indicated DVT Prophylaxis: SCDs, add lovenox IV fluids: None Lines/Tubes: Peripheral IV Code Status: Full code Time Spent With Patient Time: 38 minutes Subjective Date/time seen: 01/07/25 10:25 Interval history: No overnight events. Shoulder pain improving but range of motion limited. Blood pressure 184/84. Has ranged between 123-188/48-86 Otherwise medically stable for discharge pending SNF Review of Systems Review of Systems: All systems reviewed & are unremarkable except as noted in HPI and below Exam Narrative: General - Awake and alert. No acute distress Eyes - PERRLA, EOM intact ENT - No thrush, No erythema Neck - No noticeable or palpable swelling Lymph Nodes - No lymphadenopathy Cardiovascular - RRR no m/r/g, no JVD Lungs: Clear to auscultation, No wheezing, use of accessory muscles, no crackles Skin - Skin warm and dry, no wounds or rashes Abdomen - Normal bowel sounds, abdomen soft and nontender Extremities - Right knee mildly TTP, Right shoulder TTP, Musculoskeletal - 4/5 strength, unable to shrug right shoulder, chronically enlarged knee joints Neurological ? Alert and oriented x 2, CN 2-12 grossly intact. Psych: Normal mood and affect Objective Data Vital Signs Vital Signs: Vital Signs - 24 hr 01/06/25 08:30 01/06/25 08:37 01/06/25 15:52 Temperature 98.0 F Pulse Rate 72 63 Respiratory Rate 16 Blood Pressure 150/65 H Pulse Oximetry 96 Oxygen Delivery Room Air 01/06/25 20:00 01/06/25 20:04 01/06/25 21:52 Temperature 98.2 F Pulse Rate 70 71 Respiratory Rate 12 12 Blood Pressure 151/70 H Pulse Oximetry 95 95 95 Oxygen Delivery Room Air Room Air 01/06/25 22:13 01/07/25 05:03 Temperature 97.2 F L Pulse Rate 70 68 Respiratory Rate 12 Blood Pressure 151/76 H Pulse Oximetry 94 Oxygen Delivery Intake/Output Intake/Output: Intake & Output 01/04/25 01/05/25 01/06/25 01/07/25 23:59 23:59 23:59 23:59 Intake Total 1050 1970 1570 300 Output Total 1800 1100 1100 400 Balance -750 870 470 -100 Meds/Results Medications: Active Medications Generic Name Dose Route Start Last Admin Trade Name Freq PRN Reason Stop Dose Admin Acetaminophen 1,000 mg 01/06/25 16:39 Acetaminophen 500 Mg Tablet PO Q6H PRN Mild Pain (1-3) or Fever Hydrocodone Bitart/Acetaminophen 1 tab 01/03/25 19:36 01/06/25 22:12 Hydrocodone/Acetaminophen (*Crx) 5-325 Mg Tablet PO 1 tab Q6H PRN Administration Pain Rated 4-6 Aspirin 81 mg 01/04/25 09:00 01/06/25 08:36 Aspirin 81 Mg Enteric Tablet PO 81 mg DAILY DELMER Administration Carvedilol 12.5 mg 01/03/25 22:10 01/06/25 22:13 Carvedilol 12.5 Mg Tablet PO 12.5 mg Q12HR DELMER Administration Enoxaparin Sodium 30 mg 01/06/25 09:00 01/06/25 08:38 Enoxaparin 30 Mg/0.3 Ml Syringe SUB-Q 30 mg DAILY DELMER Administration Furosemide 20 mg 01/04/25 09:00 01/06/25 08:36 Furosemide 20 Mg Tablet PO 20 mg DAILY DELMER Administration Ceftriaxone Sodium 1 gm in 50 mls @ 100 mls/hr 01/04/25 18:30 01/06/25 18:36 Rocephin 1 Gm/Ns 50 Ml IVPB 100 mls/hr Q24H DELMER Administration Losartan Potassium 50 mg 01/03/25 22:10 01/06/25 22:13 Losartan Potassium 50 Mg Tablet PO 50 mg Q12HR DELMER Administration Morphine Sulfate 2 mg 01/03/25 19:36 Morphine Sulfate (*Crx) 2 Mg/Ml Inj IV PUSH Q4H PRN Pain Rated 7-10 Ondansetron HCl 4 mg 01/03/25 18:55 01/04/25 10:37 Ondansetron Inj 4 Mg/2 Ml Vial IV PUSH 4 mg Q4H PRN Administration Nausea Polyethylene Glycol 17 gm 01/06/25 17:00 01/06/25 17:57 Polyethylene Glycol 3350 17 Gm Powd.Pack PO Not Given BID DELMER Senna/Docusate Sodium 1 tab 01/03/25 19:36 Senna/Docusate Sodium Tablet PO HS PRN Constipation Vitamin D 25 mcg 01/04/25 09:00 01/06/25 08:36 Cholecalciferol (Vitamin D3) 25 Mcg (1,000 Units) Tablet PO 25 mcg DAILY DELMER Administration Radiology Results: ITS Impressions Head CT 01/03/25 14:52 IMPRESSION: No acute intracranial findings. Cervical Spine CT 01/03/25 15:07 IMPRESSION: 1. Moderate cervical spondylosis. No acute osseous abnormality. Femur X-Ray 01/03/25 17:09 IMPRESSION: No acute fracture, as detailed above. Shoulder CT 01/04/25 16:37 IMPRESSION: 1. No fracture or other acute osseous abnormality. 2. Moderate right glenohumeral osteoarthritis, likely secondary to chronic rotator cuff arthropathy with cephalad subluxation of the humeral head and significant narrowing of the subacromial space consistent with rotator cuff tear which is likely chronic given the associated rotator cuff muscle fatty atrophy. Quality VTE Prophylaxis VTE prophylaxis: mechanical ordered and pharmacologic ordered Hospitalist MIPS Advance Care Plan I have confirmed that the patient's Advanced Care Plan is present, code status is documented, or surrogate decision maker is listed in patient medical record.: Yes Medication Reconciliation I have utilized all available resources to obtain, update and review the patients current medications (includes all prescriptions, OTC, herbals, cannabis, and nutritional supplements).: Yes
[2025-01-07 08:38] LABS: Hematocrit 36.1 % (37.0-47.0); Hemoglobin 11.9 g/dL (12.0-15.0); Immature Granulocyte Percent A 0.8 % (0-0.5); Lymphocytes Absolute Auto 1.11 K/mm3 (0.9-3.2); Mean Corpuscular HGB Conc 33.0 g/dl (32-36); Mean Corpuscular Hemoglobin 31.4 pg (26-34); Mean Corpuscular Volume 95.3 fl (80-100); Nucleated Red Blood Cells Absolute Auto 0.000 K/mm3 (0.0-0.012); Nucleated Red Blood Cells Perc 0.0 % (0.0-0.2); Platelet Count Result 218 k/mm3 (150-375); Red Blood Count 3.79 M/mm3 (4.2-5.4); White Blood Count 6.5 K/mm3 (4.5-10.0)
[2025-01-07 08:53] LABS: Anion Gap 5 mmol/L (4-12); Blood Urea Nitrogen 12 mg/dL (7-17); Calcium 9.0 mg/dL (8.4-10.2); Carbon Dioxide 29 mmol/L (22-30); Chloride 102 mmol/L (98-107); Estimated CRCL calculation 38 ml/min; Estimated Glomerular Filt Rate > 60; Glucose 91 mg/dL (65-110); Potassium 3.9 mmol/L (3.4-5.0); Sodium 136 mmol/L (137-145)
[2025-01-07] MEDS: CHOLECALCIFEROL (VITAMIN D3) 25 MCG (1,000 UNITS) TABLET PO (09:01)
[2025-01-07] MEDS: ASPIRIN 81 MG ENTERIC TABLET PO (09:01)
[2025-01-07 09:02] VITALS: PULSE 74
[2025-01-07] MEDS: FUROSEMIDE 20 MG TABLET PO (09:02)
[2025-01-07] MEDS: LOSARTAN POTASSIUM 50 MG TABLET PO ×2 (09:02→20:38)
[2025-01-07] MEDS: ENOXAPARIN 30 MG/0.3 ML SYRINGE SUB-Q (09:02)
[2025-01-07 10:05] VITALS: O2SAT 93
[2025-01-07 14:43] VITALS: BP 184/84; PULSE 67; RESP 20; TEMP 37.1; O2SAT 97
[2025-01-07 19:42] VITALS: PULSE 67; RESP 20; O2SAT 97
[2025-01-07 21:25] VITALS: BP 155/92; PULSE 74; RESP 16; TEMP 36.9; O2SAT 95
[2025-01-08] MEDS: LOSARTAN POTASSIUM 50 MG TABLET PO ×2 (05:18→20:54)
[2025-01-08 06:00] VITALS: BP 172/98; PULSE 73; RESP 18; TEMP 37.3; O2SAT 94
[2025-01-08] MEDS: CHOLECALCIFEROL (VITAMIN D3) 25 MCG (1,000 UNITS) TABLET PO (08:46)
[2025-01-08] MEDS: ASPIRIN 81 MG ENTERIC TABLET PO (08:46)
[2025-01-08 08:48] VITALS: PULSE 82
[2025-01-08] MEDS: FUROSEMIDE 20 MG TABLET PO (08:48)
[2025-01-08] MEDS: ACETAMINOPHEN 500 MG TABLET 1000 MG PO ×2 (08:54→20:52)
[2025-01-08] MEDS: CEFDINIR 300 MG CAPSULE PO ×2 (08:55→20:54)
[2025-01-08] MEDS: ENOXAPARIN 30 MG/0.3 ML SYRINGE SUB-Q (08:57)
[2025-01-08 14:00] VITALS: BP 110/47; PULSE 67; RESP 16; TEMP 36.5; O2SAT 96
--- NOTE | 2025-01-08 14:49 | P.DS_ITS ---
DS: Admitting Diagnosis Discharge Date 01/08/25 Admitting Diagnosis Fall, UTI DS: Discharge Diagnosis Discharge Diagnosis (1) UTI (urinary tract infection): Qualifiers: Hematuria presence: without hematuria Urinary tract infection type: acute cystitis Qualified Code(s): N30.00 - Acute cystitis without hematuria Code(s): N39.0 - Urinary tract infection, site not specified Status: Acute (2) Fall: Qualifiers: Encounter type: initial encounter Qualified Code(s): W19.XXXA - Unspecified fall, initial encounter Code(s): W19.XXXA - Unspecified fall, initial encounter Status: Acute (3) Hypertension: Qualifiers: Hypertension type: essential hypertension Qualified Code(s): I10 - Essential (primary) hypertension Code(s): I10 - Essential (primary) hypertension Status: Chronic (4) Rotator cuff injury: Code(s): S46.009A - Unspecified injury of muscle(s) and tendon(s) of the rotator cuff of unspecified shoulder, initial encounter Status: Acute DS: Summary Hospital Course Hospital Course: 89-year-old female with past medical history of rheumatoid arthritis and hypertension that presented to the ED on 01/03/2025 for ground level fall. She was found to have an abnormal UA and urine culture came back positive for E coli. PT and OT worked with the patient. Antibiotics ruled to be transition from Rocephin to cefdinir. After her fall she was also found to have a right- sided rotator cuff tear. She is opting for nonsurgical management. Care coordination worked with the patient for placement into rehab facility. Plan for patient to go to [facility]. Waiting to hear back on acceptance from them. Once she has been excepted she can discharge. Continue outpatient antibiotics until completion. If patient cannot discharge today, then can use this note as a progress note. Time Spent with Patient Time attestation: Total time spent providing and/or coordinating discharge services: Exam Narrative: GENERAL: Comfortable, no acute distress HENMT: moist mucous membranes EYES: EOM intact b/l NECK: no lymphadenopathy RESPIRATORY: clear to auscultation, no increased respiratory effort CARDIO: Regular rate and rhythm GI: soft, nontender, bowel sounds present SKIN/EXTREMITIES: no rashes, no edema, no redness or tenderness NEURO: PROM intact, answers questions appropriately, A&O x4 Discharge Plan Discharge Discharging Clinician: Shaneka Trotter Patient Disposition: SNF Activity: no preference Diet: regular Discharge Instructions: Discharge disposition: Take medications as prescribed Monitor blood pressures Avoid social areas, you wear a mask when in social settings Encouraged to continue with yearly vaccinations Return to the emergency department if he developed sudden shortness of breath, chest pain, nausea, vomiting, upset stomach or intractable diarrhea Return to the emergency department if you develop fever greater than 100.4 Follow-up with the primary care physician within 1-2 weeks Thank you for [facility] for your healthcare needs Patient Instructions: Heart Failure (GEN) Patient Language: Somali Stand Alone Forms: General Discharge Information Follow-up/Referrals: Zach Abarca MD [Primary Care Provider] - Discharge Medications: New ibuprofen 600 mg tablet 600 mg PO TID PRN (Reason: pain) Qty: 30 0RF acetaminophen 500 mg capsule 1,000 mg PO Q6H PRN (Reason: pain) Qty: 30 0RF lidocaine 4 % adhesive patch,medicated 1 patch topical DAILY PRN (Reason: pain) Qty: 10 0RF amlodipine 2.5 mg Tablet 2.5 mg PO QAM Qty: 30 0RF cefdinir 300 mg Capsule 300 mg PO Q12HR Qty: 5 0RF Continued cholecalciferol (vitamin D3) 1,250 mcg (50,000 unit) capsule 1,250 mcg PO WEEKLY Patient Comments: Mondays only aspirin 81 mg tablet,delayed release (DR/EC) 81 mg PO DAILY cholecalciferol (vitamin D3) 1,250 mcg (50,000 unit) tablet 1,250 mcg PO WEEKLY Qty: 14 1RF losartan 50 mg tablet See Rx Instructions .ROUTE .COMPLEX Qty: 180 1RF Dose Instruction: TAKE 1 TABLET BY MOUTH TWICE A DAY Patient Comments: @ 8am and 8 pm Rx Instructions: TAKE 1 TABLET BY MOUTH TWICE A DAY furosemide 20 mg tablet See Rx Instructions .ROUTE .COMPLEX Qty: 90 1RF Dose Instruction: TAKE 1 TABLET BY MOUTH EVERY DAY Patient Comments: @ 0900 Rx Instructions: TAKE 1 TABLET BY MOUTH EVERY DAY carvedilol 12.5 mg tablet See Rx Instructions .ROUTE .COMPLEX Qty: 180 1RF Dose Instruction: TAKE 1 TABLET BY MOUTH EVERY 12 HOURS Patient Comments: @ 9am and 9 pm Rx Instructions: TAKE 1 TABLET BY MOUTH EVERY 12 HOURS Date of admission: 01/05/25 16:15 Primary Care Provider: Zach Abarca Admitting Provider: Lonnie Brown Attending physician on admission: Nanci Castañeda Condition: Stable Hospitalist MIPS Heart Failure (Exclusion) Patient has history of Heart Transplant or Left Ventricular Assistive Device?: No IF YES, STOP HERE Heart Failure (Qualifier) Patient has current or prior documentation of LVEF less than or equal to 40%, or mod/servere depressed LVSF?: No IF NO, STOP HERE
[2025-01-08 20:53] VITALS: PULSE 76
[2025-01-08 21:48] VITALS: BP 158/58; PULSE 76; RESP 18; TEMP 36.7; O2SAT 97
[2025-01-09 05:28] VITALS: BP 159/73; PULSE 75; RESP 18; TEMP 36.6; O2SAT 97
[2025-01-09 09:04] VITALS: PULSE 75
[2025-01-09] MEDS: FUROSEMIDE 20 MG TABLET PO (09:04)
[2025-01-09] MEDS: LOSARTAN POTASSIUM 50 MG TABLET PO (09:04)
[2025-01-09] MEDS: CEFDINIR 300 MG CAPSULE PO (09:04)
[2025-01-09] MEDS: ASPIRIN 81 MG ENTERIC TABLET PO (09:04)
[2025-01-09] MEDS: CHOLECALCIFEROL (VITAMIN D3) 25 MCG (1,000 UNITS) TABLET PO (09:04)
[2025-01-09] MEDS: ACETAMINOPHEN 500 MG TABLET 1000 MG PO (09:10)
[2025-01-09] MEDS: ENOXAPARIN 40 MG/0.4 ML SYRINGE SUB-Q (09:10)
--- NOTE | 2025-01-09 10:38 | P.DS_ITS ---
DS: Admitting Diagnosis Discharge Date UTI Admitting Diagnosis UTI DS: Discharge Diagnosis Discharge Diagnosis (1) UTI (urinary tract infection): Qualifiers: Hematuria presence: without hematuria Urinary tract infection type: acute cystitis Qualified Code(s): N30.00 - Acute cystitis without hematuria Code(s): N39.0 - Urinary tract infection, site not specified Status: Acute Assessment and Plan: Tx with ceftraixone and d/maria on cefdinir (2) Fall: Qualifiers: Encounter type: initial encounter Qualified Code(s): W19.XXXA - Unspecified fall, initial encounter Code(s): W19.XXXA - Unspecified fall, initial encounter Status: Acute Assessment and Plan: Fall Rotator Cuff Tear Trauma workup including a head CT, shoulder XR, C-spine CT, wrist XR, hand XR, hip/pelvic XR, and femur XR negative for acute traumatic findings. See individual reports for some chronic findings. 01/04 CT right shoulder 01/05 shows: 1. No fracture or other acute osseous abnormality. 2. Moderate right glenohumeral osteoarthritis, likely secondary to chronic rotator cuff arthropathy with cephalad subluxation of the humeral head and significant narrowing of the subacromial space consistent with rotator cuff tear which is likely chronic given the associated rotator cuff muscle fatty atrophy. Patient and family both report the acute pain and decrease in mobility is new so there is an acute on chronic process. Possible new rotator cuff tear. --Though she is not currently interested in surgery, f/u with ortho. Planning PT. Referral to orthopedic surgery if she reconsiders. - PT/OT/care coordination consulted for acute rehab services and evaluation, recommending SNF but insurance denied. Plan to go home to - fall precautions (3) Hypertension: Qualifiers: Hypertension type: essential hypertension Qualified Code(s): I10 - Essential (primary) hypertension Code(s): I10 - Essential (primary) hypertension Status: Chronic Assessment and Plan: Home meds: Losartan, Coreg --Start amlodipine 2.5mg daily (4) Rotator cuff injury: Code(s): S46.009A - Unspecified injury of muscle(s) and tendon(s) of the rotator cuff of unspecified shoulder, initial encounter Status: Acute Plan DS: Summary Hospital Course Hospital Course: 89 y/o F with PMH of rheumatoid arthritis and hypertension presents here post ground level fall. The patient presents here from home via personal vehicle for further evaluation post ground level fall. She reports she was going to the kitchen to get some chips. She was holding onto her counter top and then she swayed from side to side, felt some dizziness. Next recollection was ending up on the floor. +LOC and head strike. After the fall she is reporting pain to her bilateral arms and right leg. She was able to crawl to the phone to call her family. Upon arrival to the emergency department she was having difficulty raising her right arm due to pain in her right shoulder. She currently lives at home alone and ambulates with walker - was not using it at the time of the fall, was using her furniture and counter for balance. She was found to have a rotator cuff tear and subluxation but is not interested in surgery at this time. Plan to d/c to SNF but denied. Pt also had UTI which was treated with abx. day of discharge pt is doing great with no complaints. Blood pressure elevated, started norvasc 2.5 daily Time Spent with Patient Time attestation: Total time spent providing and/or coordinating discharge services:35 Time spent: Greater than 30 minutes Exam Narrative: General: Well developed well nourished patient in NAD HEENT: normocephalic Neck: supple Neuro: Alert and oriented CV:RRR Resp:CTA Abd: Soft, non distended. No pain to palpation. Positive bowel sounds Extremities: No swelling, erythema, or pain to palpation to LE. Pain to R arm, no excessive brusing. Discharge Plan Discharge Attending physician on discharge: Lamont Carbone Discharging Clinician: Dionna Eldridge Patient Disposition: Home with Home Health Service Activity: no preference Diet: regular Discharge Instructions: Discharge disposition: Take medications as prescribed You are on a new blood pressure pill amlodipine. Please discuss this with your primary care provider when you see them in follow up. Return to the emergency department if he developed sudden shortness of breath, chest pain, nausea, vomiting, upset stomach or intractable diarrhea Return to the emergency department if you develop fever greater than 100.4 Follow-up with the primary care physician within 1-2 weeks Thank you for choosing [facility] for your healthcare needs Care Coordination: Patient to have [facility] for PT/OT eval and treat, and snf. Their phone number is [phone], if you have any questi ons; they will contact you to schedule their first visit. RN please fax discharge instructions to [phone]. Patient Instructions: Antibiotic Form, Heart Failure (GEN) Patient Language: Amharic Stand Alone Forms: General Discharge Information Follow-up/Referrals: Zach Abarca MD [Primary Care Provider] - Discharge Medications: New lidocaine 4 % adhesive patch,medicated 1 patch topical DAILY PRN (Reason: pain) Qty: 10 0RF amlodipine 2.5 mg Tablet 2.5 mg PO QAM Qty: 30 0RF cefdinir 300 mg Capsule 300 mg PO Q12HR Qty: 5 0RF Continued cholecalciferol (vitamin D3) 1,250 mcg (50,000 unit) capsule 1,250 mcg PO WEEKLY Patient Comments: Mondays only aspirin 81 mg tablet,delayed release (DR/EC) 81 mg PO DAILY cholecalciferol (vitamin D3) 1,250 mcg (50,000 unit) tablet 1,250 mcg PO WEEKLY Qty: 14 1RF losartan 50 mg tablet See Rx Instructions .ROUTE .COMPLEX Qty: 180 1RF Dose Instruction: TAKE 1 TABLET BY MOUTH TWICE A DAY Patient Comments: @ 8am and 8 pm Rx Instructions: TAKE 1 TABLET BY MOUTH TWICE A DAY furosemide 20 mg tablet See Rx Instructions .ROUTE .COMPLEX Qty: 90 1RF Dose Instruction: TAKE 1 TABLET BY MOUTH EVERY DAY Patient Comments: @ 0900 Rx Instructions: TAKE 1 TABLET BY MOUTH EVERY DAY carvedilol 12.5 mg tablet See Rx Instructions .ROUTE .COMPLEX Qty: 180 1RF Dose Instruction: TAKE 1 TABLET BY MOUTH EVERY 12 HOURS Patient Comments: @ 9am and 9 pm Rx Instructions: TAKE 1 TABLET BY MOUTH EVERY 12 HOURS Date of admission: 01/05/25 16:15 Primary Care Provider: Zach Abarca Admitting Provider: Lonnie Brown Attending physician on admission: Dionna Eldridge Condition: Stable
[2025-01-09 14:00] VITALS: BP 158/64; PULSE 64; RESP 24; TEMP 36.3; O2SAT 94
--- NOTE | 2025-01-09 15:16 | PCPTNOTE ---
Attempted to see pt at 15:10 however pt is to be discharged home this afternoon. Pts daughter called while I was chatting with pt and wanted to speak to me. She was wanting her mother to have therapy before discharge. I spoke with RN who is aware. GURMEET
== END 2025-01-09 17:20 | disposition home health service (06) | DRG 563 ==
LOC: ANHED 18:37 → ANH3MEDSUR 19:58 → ANH2MED 21:51
PROVIDERS: Nurse Practitioner Acute Care; Student in an Organized Health Care Education/Training Program; Admitting Provider Internal Medicine; Emergency Provider Student in an Organized Health Care Education/Training Program; PCP Family Medicine; Visit Provider Physician Assistant
DX: S46.011A Strain of muscle(s) and tendon(s) of the rotator cuff of right shoulder, initial encounter (principal); N39.0 Urinary tract infection, site not specified; I11.0 Hypertensive heart disease with heart failure; I50.9 Heart failure, unspecified; S60.212A Contusion of left wrist, initial encounter; W19.XXXA Unspecified fall, initial encounter; M17.11 Unilateral primary osteoarthritis, right knee; M06.9 Rheumatoid arthritis, unspecified; Z79.82 Long term (current) use of aspirin
CPT/HCPCS: 36415; 70450; 72125; 73030; 73110; 73120; 73200; 73502; 73552; 80048; 80053; 81001; 85025; 87086; 87186; 96365; 96372; 96375; 97110; 97161; 97165; 97530; 97535; 99285; A9270; G0378; J0696; J1100; J1650; J1885; J2003; J2405; J2704